=== PATIENT | female | born 1945 | race Caucasian/White ===

== ENCOUNTER → 2017-10-16 08:41 | Outpatient (CLI) | payer MEDICARE, BC, SELFPAY ==
--- NOTE | 2017-10-16 08:46 | MR_ITS ---
MR head/brain wo con HISTORY: Memory loss, ataxia, confusion, altered mental status, altered level of consciousness ITS.REASON: ATAXIA ORDERING PHYSICIAN: Raffaele Mcmahon MD PATIENT AGE: 72 years COMPARISON: None TECHNIQUE: Standard multiplanar multiecho sequences are performed without contrast. FINDINGS: No midline shift, mass effect, intracranial hemorrhage, or hydrocephalus. There is mild atrophy with periventricular ischemic gliotic changes. No acute infarction. No abnormal restricted diffusion. The cerebellopontine angles, cerebellum, and brainstem are unremarkable. The patella anteriorly, optic chiasm, corpus callosum have an unremarkable appearance. The hippocampal gyri are unremarkable in the temporal arteries are symmetric. No mastoid effusion or sinus air-fluid level. IMPRESSION: 1. No acute intracranial findings. 2. Atrophy with chronic ischemic gliotic changes
== END ==
PROVIDERS: Family Provider Internal Medicine Adolescent Medicine; PCP Internal Medicine Adolescent Medicine; Visit Provider Internal Medicine Adolescent Medicine
DX: R27.0 Ataxia, unspecified (principal)
CPT/HCPCS: 70551

== ENCOUNTER 2017-12-13 18:32 | Inpatient (IN) | payer MEDICARE, BC, SELFPAY ==
[2017-12-13 18:38] VITALS: BP 169/75; PULSE 124; RESP 28; TEMP 37.6; O2SAT 83; BMI 26.4
--- NOTE | 2017-12-13 18:47 | XR_ITS ---
XR chest portable COMPARISON: Portable upright chest 03/14/2017 HISTORY: Shortness of breath TECHNIQUE: Portable upright chest FINDINGS: Mild emphysematous changes seen with hyperexpansion lung onofre. See no infiltrate. The cardiac silhouette and vascularity are normal and is no pleural fluid. IMPRESSION: Mild COPD, no acute chest pathology noted
[2017-12-13 19:14] LABS: Basophils % 0.3 % (0.1-2.0); Eosinophils # 0.1 K/mm3 (0.0-0.4); Hematocrit 43.2 % (37.0-47.0); Hemoglobin 13.7 g/dL (12.2-16.2); Lymphocytes # 0.6 K/mm3 (0.7-4.5); Lymphocytes % 7.3 K/mm3 (10-50); Mean Corpuscular HGB Conc 31.7 g/dL (31.8-35.4); Mean Corpuscular Volume 94.7 fl (81-99); Mean Platelet Volume 7.1 fl (7.4-10.4); Monocytes # 0.5 K/mm3 (0.1-1.0); Monocytes % 7.1 % (1.7-9.3); Neutrophils # 6.4 K/mm3 (1.8-7.8); Neutrophils % 84.2 % (37.0-80.0); Platelet Count 203 K/mm3 (142-424); Red Blood Count 4.56 M/mm3 (4.20-5.40); Red Cell Distribution Width 12.6 % (11.5-17.5); White Blood Count 7.6 K/mm3 (4.8-10.8)
[2017-12-13 19:30] LABS: Lactic Acid 1.4 mmol/L (0.4-2.0)
[2017-12-13 19:46] LABS: Alanine Aminotransferase 30 U/L (12-78); Albumin Level 3.7 gm/dL (3.4-5.0); Albumin/Globulin Ratio 0.9 (1.1-1.8); Alkaline Phosphatase 111 U/L (46-116); Anion Gap 11.7 mEq/L (5-15); Aspartate Amino Transferase 23 U/L (15-37); Bilirubin,Total 0.4 mg/dL (0.2-1.0); Blood Urea Nitrogen 9 mg/dL (7-18); CKMB Relative Index 2.5 U/L (0-4.0); Carbon Dioxide 35 mmol/L (21.0-32.0); Chloride 98 mmol/L (98-107); Creatine Kinase 79 U/L (26-192); Creatinine Clearance Estimated 50 mL/min (0-300); Creatinine,Serum 0.91 mg/dL (0.55-1.02); Estimated Glomerular Filt Rate 61 ml/min (>60); GFR (African American) 73 ML/MIN (>60); Globulin 4.1 gm/dl (1.3-3.2); Glucose 134 mg/dL (74-106); Potassium 3.7 mmoL/L (3.5-5.1); Sodium 141 mmol/L (136-145); Total Protein,Serum 7.8 gm/dL (6.4-8.2); Troponin I < 0.02 ng/ml (0.00-0.06)
--- NOTE | 2017-12-13 20:06 | HMH.EDGENADL ---
ED Disposition Clinical Impression: COPD exacerbation Upper respiratory infection Qualifiers: URI type: unspecified URI Qualified Code(s): J06.9 - Acute upper respiratory infection, unspecified Disposition: Still a Patient Condition on Discharge: Good Referrals: Raffaele Mcmahon MD [Primary Care Provider] - - Critical Care Critical Care Time: No Attestation: On 12/13/17, the high probability of a clinically significant, sudden or life threatening deterioration of the following system(s) required my full and direct attention, intervention and personal management. The time I documented below is in addition to time spent performing reported procedures but includes the following listed in this critical care notation. Medical Decision Making - Hua Inquiry Pt receiving controlled substance: No Vital Signs: 12/13/17 18:38 Temperature 99.7 F H Temperature Source Oral Pulse Rate [Right Brachial] 124 H Respiratory Rate 28 H Blood Pressure [Right Arm] 169/75 Blood Pressure Mean [Right Arm] 106 Blood Pressure Source [Right Arm] Automatic Cuff Blood Pressure Position [Right Arm] Supine 02 Sat by Pulse Oximetry 83 L Oxygen Delivery Method Room Air - Lab Data Lab Results 12/13/17 18:55: WBC 7.6, RBC 4.56, Hgb 13.7, Hct 43.2, MCV 94.7, MCH 30.0, MCHC 31.7 L, RDW 12.6, Plt Count 203, MPV 7.1 L, Neut % (Auto) 84.2 H, Lymph % (Auto) 7.3 L, [place] % (Auto) 7.1, Eos % (Auto) 1.0, Baso % (Auto) 0.3, Neut # (Auto) 6.4, Lymph # (Auto) 0.6 L, [place] # (Auto) 0.5, Eos # (Auto) 0.1, Baso # (Auto) 0.0 12/13/17 18:55: Sodium 141, Potassium 3.7, Chloride 98, Carbon Dioxide 35 H, Anion Gap 11.7, BUN 9, Creatinine 0.91, Estimated Creat Clear 50, Estimated GFR 61, Est GFR ( Amer) 73, Glucose 134 H, Calcium 9.0, Total Bilirubin 0.4, AST 23, ALT 30, Alkaline Phosphatase 111, Total Creatine Kinase 79, CK-MB (CK-2) 2.0, CK-MB (CK-2) Rel Index 2.5, Troponin I < 0.02, Total Protein 7.8, Albumin 3.7, Globulin 4.1 H, Albumin/Globulin Ratio 0.9 L 12/13/17 18:55: Lactic Acid 1.4 Result diagrams: 12/13/17 18:55 12/13/17 18:55 Orders (Tests/Meds): ORDERS Category Date Time Status Chest XR -- portable [XR chest portable] Stat Exams 12/13/17 18:47 Taken Urinalysis-Acute [Urinalysis and Microscopic] Stat Lab 12/13/17 18:48 Ordered Blood Culture Stat Micro 12/13/17 18:55 Received ECG Request by /Nicole Stat Y 12/13/17 18:47 Ordered - ECG Data Tracing #1 EKG interpreted by Girish Jimenez MD: Rhythm: sinus tachycardia Rate: 112 [place]: Right Ectopy: none Conduction: normal ST Segment Changes: none T Wave Changes: none Q Waves: none No evidence of acute ischemia or injury Medical Decision Narrative: Initial pulse ox of 83% was on room air in the emergency room. She is not normally on room air at home. The patient's son feels strongly that she needs to be admitted. He says she lives alone. Very weak and unable to walk around because of dyspnea on exertion. 8:30 PM: I have discussed the case with Dr. Huggins for Dr. Mcmahon who agrees to admit the patient to the hospital. We discussed the patient's clinical information, including history, exam, laboratory and radiology results and ED course. Per hospital procedure, I will write temporary bridge inpatient orders on the patient. Specific orders requested by the admitting physician: Azithromycin, steroids, nebulizers General Adult HPI - General Chief complaint: Shortness of Breath/Dyspnea Stated complaint: trouble breathing history of COPD Time Seen by Provider: 12/13/17 20:15 Mode of Arrival: Family Vehicle Limitations: No Limitations Description of Symptoms (Recalled from ER Triage Doc. by RN): C/O SOB X 2 DAYS HX EMPHYSEMA - History of Present Illness HPI narrative: The patient complains of shortness of breath and a cold with a cough, nonproductive, for 2-3 days. She is extremely weak and very dyspneic on exertion. Her son turned her oxyg
[2017-12-13 20:35] VITALS: BP 160/87; PULSE 108; RESP 20; TEMP 37.1; O2SAT 96
[2017-12-13 20:53] VITALS: PULSE 100; PULSE 112; O2SAT 97
[2017-12-13 21:57] VITALS: BP 172/79; PULSE 117; RESP 22; TEMP 37.2; O2SAT 97
[2017-12-13 21:58] VITALS: BMI 25.1
[2017-12-13 22:00] VITALS: O2SAT 97
[2017-12-14] VITALS (7 sets, daily range): BP systolic 133–150; BP diastolic 59–75; PULSE 83–111; RESP 16–22; TEMP 36.4–36.9; O2SAT 92–97
--- NOTE | 2017-12-14 04:44 | PC.NURSE ---
NO COMPLAINTS SINCE ADMISSION, HAS SLEPT WELL. BS ACTIVE IN ALL 4 QAUDS. TOLERATING 2L NC WELL. WHEEZING AND FAINT CRACKLES NOTED DURING LUNG AUSCULTATION. VSS. NO ACUTE DISTRESS NOTED. WILL CONTINUE TO MONITOR.
--- NOTE | 2017-12-14 07:12 | PC.NURSE ---
REPORT GIVEN A BOAT RN
--- NOTE | 2017-12-14 07:27 | HMH.HP ---
*Admission Date: 12/13/17 *Chief complaint: Shortness of breath *History of present illness: 72-year-old female with emphysema presented to the emergency department with a 3 day history of increasing dyspnea at rest and even worse with exertion. She is oxygen dependent at home and due to increasing dyspnea at her son had increase her oxygen rate to 3 L/min. When she arrived at the emergency department show O2 sats were decreased but as stay in the emergency department lengthened patient was able to be weaned back to 2 L. She reports URI symptoms of cough and nasal congestion. Cough was productive of a very small amount of green sputum. She denies fevers or chills H History Medical History: Reports:: Chronic Obstructive Pulmonary Disease (COPD), Hyperlipidemia, Hypertension Denies:: Cancer, Diabetes Mellitus Type 1, Diabetes Mellitus Type 2, Internal Pacemaker, MRSA Other Medical History: Reports: Other (SOA,LUNG DISEASE) Other Surgeries: Yes: Colonoscopy, Tubal Ligation, Other (GALLBLADDER,BLADDER TUCK x2). No: Pacemaker Amputation: No Fractures: No - *Social History Educational Level: Completed High School Smoking Status: Former smoker Alcohol Intake: never Occupational Status: retired Housing: house - Psychiatric History Expresses thoughts of harming self/others: None Suicide Plan Description: No Plan *Family Hx:: Cancer, Diabetes, Hypertension, Kidney Disease, Stroke Review of Systems - Review of Systems Review of systems:: pertinent systems reviewed and negative unless documented below - *Neurologic Reports weakness Meds Home Medications Medication Instructions Recorded Confirmed Type atorvastatin 40 mg tablet 40 mg PO DAILY tab 12/03/17 12/13/17 History betaine 1 gram/1.7 mL oral powder 3 g PO DAILY 12/03/17 12/13/17 History duloxetine 30 mg capsule,delayed 30 mg PO DAILY cap 12/03/17 12/13/17 History release fesoterodine ER 8 mg 8 mg PO DAILY tab 12/03/17 12/13/17 History tablet,extended release 24 hr formoterol fumarate 12 mcg capsule 0.012 mcg INHALATION BID puff 12/03/17 12/13/17 History with inhalation device lorazepam 0.5 mg tablet 0.5 mg PO TID tab 12/03/17 12/13/17 History mirtazapine 15 mg tablet 15 mg PO QHS 12/03/17 12/13/17 History ieshzoczttmu-Ci-swcd-minerals 18 1 tab PO DAILY tab 12/03/17 12/13/17 History mg-0.4 mg tablet omeprazole 40 mg capsule,delayed 40 mg PO DAILY cap 12/03/17 12/13/17 History release potassium chloride ER 20 mEq 20 meq PO DAILY tab 12/03/17 12/13/17 History tablet,extended release sildenafil 50 mg tablet 40 mg PO TID tab 12/03/17 12/13/17 History theophylline ER 300 mg 300 mg PO BID cap 12/03/17 12/13/17 History capsule,extended release 24 hr Bisoprolol Fumarate [Zebeta 5mg 5 mg PO DAILY 12/13/17 12/13/17 History tablet] Buspirone HCl [Buspar 10mg tablet] 10 mg PO BID 12/13/17 12/13/17 History risperiDONE [Risperdal 1mg Tablet] 1 mg PO DAILY 12/13/17 12/13/17 History Allergies Allergy/AdvReac Type Severity Reaction Status Date / Time amoxicillin [From AUGMENTIN] Allergy Unknown Verified 12/13/17 18:46 clavulanic acid Allergy Unknown Verified 12/13/17 18:46 [From AUGMENTIN] Exam Vital signs and Labs for Last 24 Hours: Temp Pulse Resp BP Pulse Ox 97.5 F L 85 22 133/71 95 12/14/17 04:34 12/14/17 07:11 12/14/17 04:34 12/14/17 04:34 12/14/17 07:11 Laboratory Results - last 24 hr 12/13/17 18:55: WBC 7.6, RBC 4.56, Hgb 13.7, Hct 43.2, MCV 94.7, MCH 30.0, MCHC 31.7 L, RDW 12.6, Plt Count 203, MPV 7.1 L, Neut % (Auto) 84.2 H, Lymph % (Auto) 7.3 L, [place] % (Auto) 7.1, Eos % (Auto) 1.0, Baso % (Auto) 0.3, Neut # (Auto) 6.4, Lymph # (Auto) 0.6 L, [place] # (Auto) 0.5, Eos # (Auto) 0.1, Baso # (Auto) 0.0 12/13/17 18:55: Sodium 141, Potassium 3.7, Chloride 98, Carbon Dioxide 35 H, Anion Gap 11.7, BUN 9, Creatinine 0.91, Estimated Creat Clear 50, Estimated GFR 61, Est GFR ( Amer) 73, Glucose 134 H, Calcium
--- NOTE | 2017-12-14 07:30 | P.HP_ITS ---
*Admission Date: 12/13/17 *Chief complaint: Shortness of breath *History of present illness: 72-year-old female with emphysema presented to the emergency department with a 3 day history of increasing dyspnea at rest and even worse with exertion. She is oxygen dependent at home and due to increasing dyspnea at her son had increase her oxygen rate to 3 L/min. When she arrived at the emergency department show O2 sats were decreased but as stay in the emergency department lengthened patient was able to be weaned back to 2 L. She reports URI symptoms of cough and nasal congestion. Cough was productive of a very small amount of green sputum. She denies fevers or chills H History Medical History: Reports:: Chronic Obstructive Pulmonary Disease (COPD), Hyperlipidemia, Hypertension Denies:: Cancer, Diabetes Mellitus Type 1, Diabetes Mellitus Type 2, Internal Pacemaker, MRSA Other Medical History: Reports: Other (SOA,LUNG DISEASE) Other Surgeries: Yes: Colonoscopy, Tubal Ligation, Other (GALLBLADDER,BLADDER TUCK x2). No: Pacemaker Amputation: No Fractures: No - *Social History Educational Level: Completed High School Smoking Status: Former smoker Alcohol Intake: never Occupational Status: retired Housing: house - Psychiatric History Expresses thoughts of harming self/others: None Suicide Plan Description: No Plan *Family Hx:: Cancer, Diabetes, Hypertension, Kidney Disease, Stroke Review of Systems - Review of Systems Review of systems:: pertinent systems reviewed and negative unless documented below - *Neurologic Reports weakness Meds Home Medications Medication Instructions Recorded Confirmed Type atorvastatin 40 mg tablet 40 mg PO DAILY tab 12/03/17 12/13/17 History betaine 1 gram/1.7 mL oral powder 3 g PO DAILY 12/03/17 12/13/17 History duloxetine 30 mg capsule,delayed 30 mg PO DAILY cap 12/03/17 12/13/17 History release fesoterodine ER 8 mg 8 mg PO DAILY tab 12/03/17 12/13/17 History tablet,extended release 24 hr formoterol fumarate 12 mcg capsule 0.012 mcg INHALATION BID puff 12/03/1712/13 History with inhalation device lorazepam 0.5 mg tablet 0.5 mg PO TID tab 12/03/17 12/13/17 History mirtazapine 15 mg tablet 15 mg PO QHS 12/03/17 12/13/17 History jomlhecfufgw-Yb-ogkl-minerals 18 1 tab PO DAILY tab 12/03/17 12/13/17 History mg-0.4 mg tablet omeprazole 40 mg capsule,delayed 40 mg PO DAILY cap 12/03/17 12/13/17 History release potassium chloride ER 20 mEq 20 meq PO DAILY tab 12/03/17 12/13/17 History tablet,extended release sildenafil 50 mg tablet 40 mg PO TID tab 12/03/17 12/13/17 History theophylline ER 300 mg 300 mg PO BID cap 12/03/17 12/13/17 History capsule,extended release 24 hr Bisoprolol Fumarate [Zebeta 5mg 5 mg PO DAILY 12/13/17 12/13/17 History tablet] Buspirone HCl [Buspar 10mg tablet] 10 mg PO BID 12/13/17 12/13/17 History risperiDONE [Risperdal 1mg Tablet] 1 mg PO DAILY 12/13/17 12/13/17 History Allergies Allergy/AdvReac Type Severity Reaction Status Date / Time amoxicillin [From AUGMENTIN] Allergy Unknown Verified 12/13/17 18:46 clavulanic acid Allergy Unknown Verified 12/13/17 18:46 [From AUGMENTIN] Exam Vital signs and Labs for Last 24 Hours: Temp Pulse Resp BP Pulse Ox 97.5 F L 85 22 133/71 95 12/14/17 04:34 12/14/17 07:11 12/14/17 04:34
--- NOTE | 2017-12-14 07:34 | PC.NURSE ---
REPORT GIVEN TO Mya HUANG W/C
--- NOTE | 2017-12-14 13:41 | P.CONPHA_ITS ---
[facility] Pharmacy VTE Monitoring - Patient Demographics Admission date: 12/14/17 Report Date: 12/14/17 Time: 13:40 Allergies/Adverse Reactions: Patient Allergies amoxicillin [From AUGMENTIN] Allergy (Unknown, Verified 12/13/17 18:46) clavulanic acid [From AUGMENTIN] Allergy (Unknown, Verified 12/13/17 18:46) Height: 1.57 m Weight: 62.341 kg Patient Problems: Current Active Problems COPD exacerbation (Acute) Upper respiratory infection (Acute) - VTE Risk Labs: VTE Related Lab Results Hgb 13.7 g/dL (12.2-16.2) 12/13/17 18:55 Hct 43.2 % (37.0-47.0) 12/13/17 18:55 Plt Count 203 K/mm3 (142-424) 12/13/17 18:55 BUN 9 mg/dL (7-18) 12/13/17 18:55 Creatinine 0.91 mg/dL (0.55-1.02) 12/13/17 18:55 Estimated Creat Clear 50 mL/min (0-300) 12/13/17 18:55 Was VTE Risk Assessment Performed: Yes VTE Score: 3 VTE Risk Level: Low Risk - Prophylaxis Types of VTE Prophylaxis: IPCS Thigh High - VTE Diagnosis Confirmed Comment: SUDHEER GARVEY ORDERED
[2017-12-15] VITALS (8 sets, daily range): BP systolic 140–201; BP diastolic 73–93; PULSE 114–140; RESP 22–24; TEMP 36.5–36.7; O2SAT 90–92
--- NOTE | 2017-12-15 03:37 | PC.NURSE ---
Pt has rested well this shift with no complaints. Pt educated on getting a sputum specimen and states she isnt able to cough anything up at this time. Tolerating 2L NC. Wheezing noted during lung auscultation. BS active in all 4 qauds. VSS. No acute distress noted. Will continue to monitor.
--- NOTE | 2017-12-15 07:20 | PC.NURSE ---
REPORT GIVEN TO Mya HUANG W/C
--- NOTE | 2017-12-15 07:52 | PC.NURSE ---
report given to a bout rn
--- NOTE | 2017-12-15 08:44 | HMH.ACPN2 ---
Internal Medicine - PN: Subj *Date: 12/15/17 *Time: 08:44 Interval history: Patient reports feeling very anxious after receiving breathing treatments. Her anxiety escalates to the point where she almost gets angry. She asks if breathing treatments can be stopped. She does feel improvement over the last 24 hours. She feels unsteady on her feet and dyspneic when ambulating Exam Vital signs and Labs for Last 24 Hours: Temp Pulse Resp BP Pulse Ox 97.9 F 114 H 22 149/86 91 L 12/15/17 04:00 12/15/17 04:00 12/15/17 04:00 12/15/17 04:00 12/15/17 04:00 I & O for Last 24 hours: Intake & Output 12/12/17 12/13/17 12/14/17 12/15/17 11:59 11:59 11:59 11:59 Intake Total 270 / 270 240 / 240 Output Total 700 / 700 1140 / 1140 Balance -430 / -430 -900 / -900 Weight 137 lb 7 oz 137 lb 7 oz Narrative: She is in no distress and appears comfortable while sitting in bed. Lung exam continues to have very distant breath sounds with poor aeration but no wheezing. Heart has a regular rate and rhythm. Extremities are without edema. Assessment and Plan (1) COPD exacerbation Current visit: Yes Status: Acute Category: Medical Code(s): J44.1 - Chronic obstructive pulmonary disease with (acute) exacerbation - Assessment and plan all Dx Assessment and Plan for all problems:: Decrease steroid frequency to twice daily and discontinue duo nebs due to agitation. Continue home inhalers.
--- NOTE | 2017-12-15 20:21 | PC.NURSE ---
NURSE WAS NOTIFIED OF PTS ELEVATED PULSE. NURSE OBTAINED PTS BP MANUAL
[2017-12-16] VITALS (8 sets, daily range): BP systolic 146–184; BP diastolic 64–96; PULSE 102–140; RESP 22–24; TEMP 36–37.1; O2SAT 90–95
--- NOTE | 2017-12-16 04:01 | PC.NURSE ---
NURSE WAS NOTIFIED OF PTS VITAL SIGNS TAKEN AT THIS TIME
--- NOTE | 2017-12-16 04:44 | PC.NURSE ---
Pt HR and B/P have been elevated this shift (MD aware see provider notification). Pt becomes very anxious at times, most often when she ambulates to BR, she states this happens to her at home a lot, and that she'll usually take an extra nerve pill. Lung sounds diminished. BS active in all 4 qauds. No acute distress noted. Will continue to monitor.
--- NOTE | 2017-12-16 07:21 | PC.NURSE ---
REPORT GIVEN TO Duglas REYNA W/C
--- NOTE | 2017-12-16 07:29 | PC.NURSE ---
report to felecia hubbard rn
--- NOTE | 2017-12-16 07:50 | HMH.ACPN ---
Internal Medicine - PN: Subj *Date: 12/16/17 *Time: 08:54 Interval history: No acute events overnight but she continues to feel very dyspneic. Otherwise she is without concerns. Hasn't had a BM since admission, is drinking prune juice this morning. Exam Vital signs and Labs for Last 24 Hours: Temp Pulse Resp BP Pulse Ox 98.2 F 140 H 22 165/64 91 L 12/16/17 07:49 12/16/17 07:49 12/16/17 07:49 12/16/17 07:49 12/16/17 07:49 I & O for Last 24 hours: Intake & Output 12/13/17 12/14/17 12/15/17 12/16/17 11:59 11:59 11:59 11:59 Intake Total 270 / 270 240 / 240 850 / 850 Output Total 700 / 700 1140 / 1140 1650 / 1650 Balance -430 / -430 -900 / -900 -800 / -800 Weight 137 lb 7 oz 137 lb 7 oz Narrative: Pleasant female in NAD. Sitting upright in bed, oxygen by NC. Mild conversational dyspnea. Heart with RRR but tachycardic. Lungs with poor air movement, bibasilar rales, congested cough. Abdomen soft, NT/ND, BS present. No edema. Assessment and Plan (1) COPD exacerbation Current visit: Yes Status: Acute Category: Medical Code(s): J44.1 - Chronic obstructive pulmonary disease with (acute) exacerbation - Assessment and plan all Dx Assessment and Plan for all problems:: Add mucomyst neb TID to help with sputum expectoration, low dose xoponex. Attempt to obtain sputum culture. High risk for MRSA given her chronic lung disease, add vancomycin IV and Aztreonam.
[2017-12-16 08:19] LABS: Basophils % 0.1 % (0.1-2.0); Eosinophils % 0.4 % (0.1-12.0); Hematocrit 46.2 % (37.0-47.0); Hemoglobin 14.7 g/dL (12.2-16.2); Lymphocytes # 0.7 K/mm3 (0.7-4.5); Lymphocytes % 6.1 K/mm3 (10-50); Mean Corpuscular HGB Conc 31.8 g/dL (31.8-35.4); Mean Corpuscular Hemoglobin 30.3 pg (27.0-31.2); Mean Corpuscular Volume 95.3 fl (81-99); Mean Platelet Volume 7.2 fl (7.4-10.4); Monocytes # 0.6 K/mm3 (0.1-1.0); Monocytes % 5.3 % (1.7-9.3); Neutrophils # 10.7 K/mm3 (1.8-7.8); Neutrophils % 88.2 % (37.0-80.0); Platelet Count 353 K/mm3 (142-424); Red Blood Count 4.85 M/mm3 (4.20-5.40); Red Cell Distribution Width 12.7 % (11.5-17.5); White Blood Count 12.1 K/mm3 (4.8-10.8)
[2017-12-16 08:21] LABS: MANUAL DIFFERENTIAL MANUAL DIFFERENTIAL (MANUAL DIFF)
[2017-12-16 08:42] LABS: Anion Gap 9.6 mEq/L (5-15); Blood Urea Nitrogen 18 mg/dL (7-18); Carbon Dioxide 35 mmol/L (21.0-32.0); Chloride 102 mmol/L (98-107); Creatinine Clearance Estimated 49 mL/min (0-300); Creatinine,Serum 0.92 mg/dL (0.55-1.02); Estimated Glomerular Filt Rate 60 ml/min (>60); GFR (African American) 72 ML/MIN (>60); Glucose 190 mg/dL (74-106); Potassium 3.6 mmoL/L (3.5-5.1); Sodium 143 mmol/L (136-145)
[2017-12-16 08:44] LABS: Lymphocytes % 10 % (10-50); Monocytes % 1 % (2-9); Neutrophils % 87 % (42-76); Platelet Estimate Normal; RBC Morphology Normal; Total Cells Counted 100
--- NOTE | 2017-12-16 09:20 | P.CONPHA_ITS ---
- Pharmacy Consult Date: 12/16/17 Time: 09:19 Referring provider: DR. GRIJALVA Reason for Consult:: VANCOMYCIN DOSING Allergies and ADEs:: Allergies Allergy/AdvReac Type Severity Reaction Status Date / Time amoxicillin [From AUGMENTIN] Allergy Unknown Verified 12/13/17 18:46 clavulanic acid Allergy Unknown Verified 12/13/17 18:46 [From AUGMENTIN] Home Medications:: Home Medications Medication Instructions Recorded Confirmed Type atorvastatin 40 mg tablet 40 mg PO HS tab 12/03/17 12/14/17 History betaine 1 gram/1.7 mL oral powder 3 g PO DAILY 12/03/17 12/13/17 History lorazepam 0.5 mg tablet 0.5 mg PO TID tab 12/03/17 12/13/17 History mirtazapine 15 mg tablet 15 mg PO QHS 12/03/17 12/13/17 History tbdlsbtpzdkg-Us-tndn-minerals 18 1 tab PO DAILY tab 12/03/17 12/13/17 History mg-0.4 mg tablet omeprazole 40 mg capsule,delayed 40 mg PO DAILY cap 12/03/17 12/13/17 History release sildenafil 50 mg tablet 40 mg PO TID tab 12/03/17 12/13/17 History theophylline ER 300 mg 300 mg PO BID cap 12/03/17 12/13/17 History capsule,extended release 24 hr Bisoprolol Fumarate [Zebeta 5mg 5 mg PO DAILY 12/13/17 12/13/17 History tablet] risperiDONE [Risperdal 1mg Tablet] 1 mg PO DAILY 12/13/17 12/13/17 History Alendronate Sodium 35 mg PO WEEKLY 12/14/17 12/14/17 History Buspirone HCl [Buspar 5mg tablet] 5 mg PO BID 12/14/17 12/14/17 History Duloxetine HCl [Cymbalta] 60 mg PO DAILY 12/14/17 12/14/17 History Fesoterodine Fumarate [Toviaz] 8 mg PO DAILY 12/14/17 12/14/17 History Potassium Chloride [K-Tab ER 10 20 meq PO BID 12/14/17 12/14/17 History mEq] Height: 1.57 m Weight: 62.341 kg Laboratory Results:: Laboratory Results - last 24 hr 12/16/17 08:05: WBC 12.1 H D, RBC 4.85, Hgb 14.7, Hct 46.2, MCV 95.3, MCH 30.3, MCHC 31.8, RDW 12.7, Plt Count 353 D, MPV 7.2 L, Neut % (Auto) 88.2 H, Lymph % (Auto) 6.1 L, [place] % (Auto) 5.3, Eos % (Auto) 0.4, Baso % (Auto) 0.1, Neut # ( Auto) 10.7 H, Lymph # (Auto) 0.7, [place] # (Auto) 0.6, Eos # (Auto) 0.0, Baso # ( Auto) 0.0, Total Counted 100, Neutrophils % (Manual) 87 H, Band Neutrophils % 2.0, Lymphocytes % (Manual) 10, Monocytes % (Manual) 1 L, Platelet Estimate Normal, RBC Morphology Normal 12/16/17 08:05: Sodium 143, Potassium 3.6, Chloride 102, Carbon Dioxide 35 H, Anion Gap 9.6, BUN 18 D, Creatinine 0.92, Estimated Creat Clear 49, Estimated GFR 60, Est GFR ( Amer) 72, Glucose 190 H Medical History: Reports:: Chronic Obstructive Pulmonary Disease (COPD), Hyperlipidemia, Hypertension Denies:: Cancer, Diabetes Mellitus Type 1, Diabetes Mellitus Type 2, Internal Pacemaker, MRSA Assessment and Plan (1) COPD exacerbation Current visit: Yes Status: Acute Category: Medical Code(s): J44.1 - Chronic obstructive pulmonary disease with (acute) exacerbation - Assessment and plan all Dx Assessment and Plan for all problems:: BASED ON PATIENT FACTORS, RECOMMEND VANCOMYCIN 1000 MG IV Q24H. WILL OBTAIN VANCOMYCIN TROUGH LEVEL PRIOR TO 4TH DOSE. PHARMACY WILL FOLLOW DAILY AND ADJUST APPROPRIATE.
--- NOTE | 2017-12-16 19:03 | PC.NURSE ---
PATIENT REFUSED BREATHING TREATMENTS THIS AM, MD NOTIFIED, MEDICATION CHANGED, MD CAME AND TALKED WITH PATIENT , PATIENT NOW GETTING BREATHING TREATMENTS. PATIENT HAS SLEPT A LOT TODAY AND WAS CONFUSED WHEN SHE WOKE UP. DENIES ANY NEEDS, NO DISTRESS NOTED, WILL CONTINUE TO MONITOR.
--- NOTE | 2017-12-16 19:13 | PC.NURSE ---
report given to loretta kathleen
--- NOTE | 2017-12-16 19:36 | PC.NURSE ---
REPORT GIVEN CHRISTOPH HATFIELD
[2017-12-17] VITALS (9 sets, daily range): BP systolic 118–158; BP diastolic 58–83; PULSE 90–155; RESP 18–20; TEMP 36.4–37.5; O2SAT 92–99
--- NOTE | 2017-12-17 04:49 | PC.NURSE ---
PT HAS SLEPT. HAD ONE EPISODE OF ANXIETY BUT EVENTUALLY CALMED. SOB WITH MNIMAL EXERTION. PT ON 2.5L OF OXYGEN. B/P AND HR HAVE BEEN ELEVATED AT TIMES. THIS AM B/P AND HR DOWN. OCCASSIONAL NONPRODUCTIVE COUGH NOTED.
[2017-12-17 07:13] LABS: Basophils % 0.1 % (0.1-2.0); Eosinophils % 0.1 % (0.1-12.0); Hematocrit 45.6 % (37.0-47.0); Hemoglobin 14.4 g/dL (12.2-16.2); Lymphocytes # 0.7 K/mm3 (0.7-4.5); Lymphocytes % 9.2 K/mm3 (10-50); Mean Corpuscular HGB Conc 31.5 g/dL (31.8-35.4); Mean Corpuscular Hemoglobin 30.2 pg (27.0-31.2); Mean Corpuscular Volume 95.8 fl (81-99); Mean Platelet Volume 7.2 fl (7.4-10.4); Monocytes # 0.4 K/mm3 (0.1-1.0); Monocytes % 4.8 % (1.7-9.3); Neutrophils # 6.8 K/mm3 (1.8-7.8); Neutrophils % 85.8 % (37.0-80.0); Platelet Count 343 K/mm3 (142-424); Red Blood Count 4.76 M/mm3 (4.20-5.40); Red Cell Distribution Width 12.9 % (11.5-17.5); White Blood Count 7.9 K/mm3 (4.8-10.8)
[2017-12-17 07:25] LABS: Anion Gap 8.6 mEq/L (5-15); Blood Urea Nitrogen 18 mg/dL (7-18); Carbon Dioxide 36 mmol/L (21.0-32.0); Chloride 103 mmol/L (98-107); Creatinine Clearance Estimated 49 mL/min (0-300); Creatinine,Serum 0.91 mg/dL (0.55-1.02); Estimated Glomerular Filt Rate 61 ml/min (>60); GFR (African American) 73 ML/MIN (>60); Glucose 160 mg/dL (74-106); Potassium 4.6 mmoL/L (3.5-5.1); Sodium 143 mmol/L (136-145)
[2017-12-17 07:37] LABS: MANUAL DIFFERENTIAL MANUAL DIFFERENTIAL (MANUAL DIFF)
--- NOTE | 2017-12-17 09:12 | HMH.ACPN2 ---
Internal Medicine - PN: Subj *Date: 12/17/17 *Time: 08:00 Interval history: Patient continues to have increased anxiety with change to mucomyst treatments. States she feels drunk after treatments. Alert and oriented x3. Rate and rhythm regular. Loose rhonchi throughout all lung onofre. Abdomen soft and nontender. Exam Vital signs and Labs for Last 24 Hours: Temp Pulse Resp BP Pulse Ox 99.5 F 155 H 18 118/58 92 L 12/17/17 07:36 12/17/17 07:36 12/17/17 07:36 12/17/17 07:36 12/17/17 07:36 Laboratory Results - last 24 hr 12/17/17 06:30: WBC 7.9 D, RBC 4.76, Hgb 14.4, Hct 45.6, MCV 95.8, MCH 30.2, MCHC 31.5 L, RDW 12.9, Plt Count 343, MPV 7.2 L, Neut % (Auto) 85.8 H, Lymph % (Auto) 9.2 L, [place] % (Auto) 4.8, Eos % (Auto) 0.1, Baso % (Auto) 0.1, Neut # (Auto) 6.8, Lymph # (Auto) 0.7, [place] # (Auto) 0.4, Eos # (Auto) 0.0, Baso # (Auto) 0.0 12/17/17 06:30: Sodium 143, Potassium 4.6 D, Chloride 103, Carbon Dioxide 36 H, Anion Gap 8.6, BUN 18, Creatinine 0.91, Estimated Creat Clear 49, Estimated GFR 61, Est GFR ( Amer) 73, Glucose 160 H I & O for Last 24 hours: Intake & Output 12/14/17 12/15/17 12/16/17 12/17/17 11:59 11:59 11:59 11:59 Intake Total 270 / 270 240 / 240 1210 / 1210 1190 / 1190 Output Total 700 / 700 1140 / 1140 1650 / 1650 1450 / 1450 Balance -430 / -430 -900 / -900 -440 / -440 -260 / -260 Weight 137 lb 7 oz 137 lb 7 oz 137 lb 7 oz Microbiology Reports for the Last 24 Hours: Microbiology 12/16/17 04:35 Sputum - Expectorated Sputum Gram Stain - Final 12/16/17 04:35 Sputum - Expectorated Sputum Sputum Culture - Preliminary Assessment and Plan (1) COPD exacerbation Current visit: Yes Status: Acute Category: Medical Code(s): J44.1 - Chronic obstructive pulmonary disease with (acute) exacerbation - Assessment and plan all Dx Assessment and Plan for all problems:: Stop mucomyst treatments. Continue IV antibiotics. Encourage to get out of bed to the chair today. Consult Dr. Danielle
--- NOTE | 2017-12-17 09:15 | P.PN_ITS ---
Internal Medicine - PN: Subj *Date: 12/17/17 *Time: 08:00 Interval history: Patient continues to have increased anxiety with change to mucomyst treatments. States she feels drunk after treatments. Alert and oriented x3. Rate and rhythm regular. Loose rhonchi throughout all lung onofre. Abdomen soft and nontender. Exam Vital signs and Labs for Last 24 Hours: Temp Pulse Resp BP Pulse Ox 99.5 F 155 H 18 118/58 92 L 12/17/17 07:36 12/17/17 07:36 12/17/17 07:36 12/17/17 07:36 12/17/17 07:36 Laboratory Results - last 24 hr 12/17/17 06:30: WBC 7.9 D, RBC 4.76, Hgb 14.4, Hct 45.6, MCV 95.8, MCH 30.2, MCHC 31.5 L, RDW 12.9, Plt Count 343, MPV 7.2 L, Neut % (Auto) 85.8 H, Lymph % ( Auto) 9.2 L, [place] % (Auto) 4.8, Eos % (Auto) 0.1, Baso % (Auto) 0.1, Neut # ( Auto) 6.8, Lymph # (Auto) 0.7, [place] # (Auto) 0.4, Eos # (Auto) 0.0, Baso # (Auto ) 0.0 12/17/17 06:30: Sodium 143, Potassium 4.6 D, Chloride 103, Carbon Dioxide 36 H , Anion Gap 8.6, BUN 18, Creatinine 0.91, Estimated Creat Clear 49, Estimated GFR 61, Est GFR ( Amer) 73, Glucose 160 H I & O for Last 24 hours: Intake & Output 12/14/17 12/15/17 12/16/17 12/17/17 11:59 11:59 11:59 11:59 Intake Total 270 / 270 240 / 240 1210 / 1210 1190 / 1190 Output Total 700 / 700 1140 / 1140 1650 / 1650 1450 / 1450 Balance -430 / -430 -900 / -900 -440 / -440 -260 / -260 Weight 137 lb 7 oz 137 lb 7 oz 137 lb 7 oz Microbiology Reports for the Last 24 Hours: Microbiology 12/16/17 04:35 Sputum - Expectorated Sputum Gram Stain - Final 12/16/17 04:35 Sputum - Expectorated Sputum Sputum Culture - Preliminary Assessment and Plan (1) COPD exacerbation Current visit: Yes Status: Acute Category: Medical Code(s): J44.1 - Chronic obstructive pulmonary disease with (acute) exacerbation - Assessment and plan all Dx Assessment and Plan for all problems:: Stop mucomyst treatments. Continue IV antibiotics. Encourage to get out of bed to the chair today. Consult Dr. Danielle
[2017-12-17 10:54] LABS: Lymphocytes % 4 % (10-50); Neutrophils % 95 % (42-76); Total Cells Counted 100
[2017-12-17 10:55] LABS: Platelet Estimate Normal
[2017-12-17 10:56] LABS: RBC Morphology Normal
--- NOTE | 2017-12-17 14:22 | CA_ITS ---
PROCEDURE: 2-D M-mode and color Doppler study INDICATIONS FOR THE TEST: Chest pain COPD Heart Murmur Tobacco Smoking Palpitations Fatigue Syncope Edema Hypertension Diabetes Mellitus Rheumatic Fever SOB TORRES Obesity Hyperlipidemia Family History HD Additional History PAT PATIENT INFORMATION HEIGHT: 62 WEIGHT:137 GENDER: Female B/P:118/58 2-D/M-MODE INTERPRETATION: 2-D MEASUREMENTS OBSERVED VALUES IN CMS Right Ventricular Dimension (RVDd) 2.7 Interventricular Septum (Thickness)(IVsd) 1.1 Left Ventricular Internal Dimensions(LVIDd) 3.4 Left Ventricular Posterior Wall (Thickness)(LVPWd) 0.8 Aortic Root 2.7 Aortic Cusp Separation 1.7 Left Atrial Dimensions (LAD) 2.9 2D 1. Left atrium is mildly enlarged, left ventricle is normal size, there is no concentric left ventricular hypertrophy, visually estimated ejection fraction of 50% with no obvious regional wall motion abnormality, endocardial surfaces are poorly visualized, this study is technically difficult to patient's factor and poor acoustic windows. 2. The right atrium and right ventricle are mildly enlarged with normal contractility. 3. The aortic valve is thickened and calcified. 4. The mitral valve has mitral annular calcification. 5. The tricuspid valve is grossly normal. 6. The pulmonic valve is poorly visualized 7. No significant pericardial effusion noted. DOPPLER INTERROGATION: Doppler interrogation of the aortic, mitral and tricuspid valvular presence of mild aortic, mild mitral and tricuspid regurgitation, tricuspid and jet velocity is insufficient for calculation of the right ventricular systolic pressure, diastolic parameters are inconclusive. CONCLUSION: 1. Technically difficult study because of the patient's factor and poor acoustic windows 2. Mildly enlarged left atrium, normal left ventricular size, visually estimated ejection fraction 50% with no obvious regional wall motion abnormality, endocardial surfaces are poorly visualized. 3. Mildly enlarged right ventricle with normal contractility 4. Mild aortic, mild mitral and tricuspid regurgitation 5. No significant pericardial effusion noted.
--- NOTE | 2017-12-17 14:22 | HMH.CNCARD ---
History of Present Illness Consult date: 12/17/17 Requesting physician: Guille Danielle Consult reason: shortness of breath Chief complaint: Tachycardia Additional Medical History:: 1. COPD A. History of tobacco use discontinued 22 years ago 2. Hypertension 3. Hyperlipidemia History of present illness: 72-year-old white female admitted on 12/13/2017 for increasing shortness of breath. Patient relates a 4 day history of gradual increasing shortness of breath prior to admission. She denies any chest pain, pressure or tightness. Shortness of breath continued despite aggressive pulmonary treatment. Dr. Danielle (Receiver Setter) was consulted today and noticed that the patient's heart rate was elevated at which time an EKG was performed revealing paroxysmal atrial tachycardia 162 bpm. Right axis deviation with pulmonary disease pattern noted. Question septal infarct. Cardiology consulted for further evaluation and recommendations. Patient denies any previous cardiac history. She denies diabetes and she quit smoking over 20 years ago. [facility] History Medical History: Reports:: Chronic Obstructive Pulmonary Disease (COPD), Hyperlipidemia, Hypertension Denies:: Cancer, Diabetes Mellitus Type 1, Diabetes Mellitus Type 2, Internal Pacemaker, MRSA Other Medical History: Reports: Other (SOA,LUNG DISEASE) Other Surgeries: Yes: Colonoscopy, Tubal Ligation, Other (GALLBLADDER,BLADDER TUCK x2). No: Pacemaker Amputation: No Fractures: No - *Social History Educational Level: Completed High School Smoking Status: Former smoker Alcohol Intake: never Occupational Status: retired Housing: house - Psychiatric History Expresses thoughts of harming self/others: None Suicide Plan Description: No Plan *Family Hx:: Cancer, Diabetes, Hypertension, Kidney Disease, Stroke Meds Home Medications Medication Instructions Recorded Confirmed Type atorvastatin 40 mg tablet 40 mg PO HS tab 12/03/17 12/14/17 History betaine 1 gram/1.7 mL oral powder 3 g PO DAILY 12/03/17 12/13/17 History lorazepam 0.5 mg tablet 0.5 mg PO TID tab 12/03/17 12/13/17 History mirtazapine 15 mg tablet 15 mg PO QHS 12/03/17 12/13/17 History sjeihhnouncr-Gr-ezxm-minerals 18 1 tab PO DAILY tab 12/03/17 12/13/17 History mg-0.4 mg tablet omeprazole 40 mg capsule,delayed 40 mg PO DAILY cap 12/03/17 12/13/17 History release sildenafil 50 mg tablet 40 mg PO TID tab 12/03/17 12/13/17 History theophylline ER 300 mg 300 mg PO BID cap 12/03/17 12/13/17 History capsule,extended release 24 hr Bisoprolol Fumarate [Zebeta 5mg 5 mg PO DAILY 12/13/17 12/13/17 History tablet] risperiDONE [Risperdal 1mg Tablet] 1 mg PO DAILY 12/13/17 12/13/17 History Alendronate Sodium 35 mg PO WEEKLY 12/14/17 12/14/17 History Buspirone HCl [Buspar 5mg tablet] 5 mg PO BID 12/14/17 12/14/17 History Duloxetine HCl [Cymbalta] 60 mg PO DAILY 12/14/17 12/14/17 History Fesoterodine Fumarate [Toviaz] 8 mg PO DAILY 12/14/17 12/14/17 History Potassium Chloride [K-Tab ER 10 20 meq PO BID 12/14/17 12/14/17 History mEq] Allergies Allergy/AdvReac Type Severity Reaction Status Date / Time amoxicillin [From AUGMENTIN] Allergy Unknown Verified 12/13/17 18:46 clavulanic acid Allergy Unknown Verified 12/13/17 18:46 [From AUGMENTIN] Review of Systems - *Cardiovascular Reports shortness of breath, Denies chest pain - *Respiratory Reports shortness of breath - *Gastrointestinal Denies abdominal pain - *Neurologic Reports weakness Exam Vital signs and Labs for Last 24 Hours: Temp Pulse Resp BP Pulse Ox 99.5 F 155 H 18 118/58 92 L 12/17/17 07:36 12/17/17 07:36 12/17/17 07:36 12/17/17 07:36 12/17/17 07:36 Laboratory Results - last 24 hr 12/17/17 06:30: WBC 7.9 D, RBC 4.76, Hgb 14.4, Hct 45.6, MCV 95.8, MCH 30.2, MCHC 31.5 L, RDW 12.9, Plt Count 343, MPV 7.2 L, Neut % (Auto) 85.8 H, Lymph % (Auto) 9.2 L, [place] % (Auto) 4.8, Eos % (Auto) 0.1, Baso % (Auto)
--- NOTE | 2017-12-17 14:28 | P.CONS_ITS ---
History of Present Illness Consult date: 12/17/17 Requesting physician: Guille Danielle Consult reason: shortness of breath Chief complaint: Tachycardia Additional Medical History:: 1. COPD A. History of tobacco use discontinued 22 years ago 2. Hypertension 3. Hyperlipidemia History of present illness: 72-year-old white female admitted on 12/13/2017 for increasing shortness of breath. Patient relates a 4 day history of gradual increasing shortness of breath prior to admission. She denies any chest pain, pressure or tightness. Shortness of breath continued despite aggressive pulmonary treatment. Dr. Danielle (Strip Picker) was consulted today and noticed that the patient's heart rate was elevated at which time an EKG was performed revealing paroxysmal atrial tachycardia 162 bpm. Right axis deviation with pulmonary disease pattern noted. Question septal infarct. Cardiology consulted for further evaluation and recommendations. Patient denies any previous cardiac history. She denies diabetes and she quit smoking over 20 years ago. [facility] History Medical History: Reports:: Chronic Obstructive Pulmonary Disease (COPD), Hyperlipidemia, Hypertension Denies:: Cancer, Diabetes Mellitus Type 1, Diabetes Mellitus Type 2, Internal Pacemaker, MRSA Other Medical History: Reports: Other (SOA,LUNG DISEASE) Other Surgeries: Yes: Colonoscopy, Tubal Ligation, Other (GALLBLADDER,BLADDER TUCK x2). No: Pacemaker Amputation: No Fractures: No - *Social History Educational Level: Completed High School Smoking Status: Former smoker Alcohol Intake: never Occupational Status: retired Housing: house - Psychiatric History Expresses thoughts of harming self/others: None Suicide Plan Description: No Plan *Family Hx:: Cancer, Diabetes, Hypertension, Kidney Disease, Stroke Meds Home Medications Medication Instructions Recorded Confirmed Type atorvastatin 40 mg tablet 40 mg PO HS tab 12/03/17 12/14/17 History betaine 1 gram/1.7 mL oral powder 3 g PO DAILY 12/03/17 12/13/17 History lorazepam 0.5 mg tablet 0.5 mg PO TID tab 12/03/17 12/13/17 History mirtazapine 15 mg tablet 15 mg PO QHS 12/03/17 12/13/17 History kvqafgazkesg-Lc-cbwp-minerals 18 1 tab PO DAILY tab 12/03/17 12/13/17 History mg-0.4 mg tablet omeprazole 40 mg capsule,delayed 40 mg PO DAILY cap 12/03/17 12/13/17 History release sildenafil 50 mg tablet 40 mg PO TID tab 12/03/17 12/13/17 History theophylline ER 300 mg 300 mg PO BID cap 12/03/17 12/13/17 History capsule,extended release 24 hr Bisoprolol Fumarate [Zebeta 5mg 5 mg PO DAILY 12/13/17 12/13/17 History tablet] risperiDONE [Risperdal 1mg Tablet] 1 mg PO DAILY 12/13/17 12/13/17 History Alendronate Sodium 35 mg PO WEEKLY 12/14/17 12/14/17 History Buspirone HCl [Buspar 5mg tablet] 5 mg PO BID 12/14/17 12/14/17 History Duloxetine HCl [Cymbalta] 60 mg PO DAILY 12/14/17 12/14/17 History Fesoterodine Fumarate [Toviaz] 8 mg PO DAILY 12/14/17 12/14/17 History Potassium Chloride [K-Tab ER 10 20 meq PO BID 12/14/17 12/14/17 History mEq] Allergies Allergy/AdvReac Type Severity Reaction Status Date / Time amoxicillin [From AUGMENTIN] Allergy Unknown Verified 12/13/17 18:46 clavulanic acid Allergy Unknown Verified 12/13/17 18:46 [From AUGMENTIN] Review of Systems - *Cardiovascular Reports shortness of breath, Denies chest pain - *Respiratory Reports shortness of b
--- NOTE | 2017-12-17 14:37 | HMH.CONS ---
*Admission Date: 12/14/17 *Chief complaint: I can't breathe right. *History of present illness: Ms. Liriano is a 72-year-old woman who was diagnosed with emphysema in 1997 and treated intermittently for this over the last 20 years. She has significant cor pulmonale and has been managed for pulmonary hypertension by Dr. Dale Minor at the [facility]. He placed her empirically on sildenafil a few years ago, I believe and she thinks it has benefited her exercise tolerance. Ms. Liriano had a long smoking history but quit more than 25 years ago. Most of the time she has had no significant cough and she manages her household alone. She appears to be quite independent. A few days ago, she suddenly became much more short of breath without fever and with minimal increasing cough. This has not responded to outpatient or inpatient therapy. She has had no chest pain and no one else in contact with her has been ill. [facility] History Medical History: Reports:: Chronic Obstructive Pulmonary Disease (COPD), Hyperlipidemia, Hypertension Denies:: Cancer, Diabetes Mellitus Type 1, Diabetes Mellitus Type 2, Internal Pacemaker, MRSA Other Medical History: Reports: Other (SOA,LUNG DISEASE) Other Surgeries: Yes: Colonoscopy, Tubal Ligation, Other (GALLBLADDER,BLADDER TUCK x2). No: Pacemaker Amputation: No Fractures: No - *Social History Educational Level: Completed High School Smoking Status: Former smoker Alcohol Intake: never Occupational Status: retired Housing: house Comment: Ms. Liriano lives alone and takes care of herself. She is and has 2 children, 5 grandchildren and several great-grandchildren with whom she is in contact. Several family members are around her bedside. - Psychiatric History Expresses thoughts of harming self/others: None Suicide Plan Description: No Plan *Family Hx:: Cancer, Diabetes, Hypertension, Kidney Disease, Stroke Comment: Her father at 80 and had COPD. One of her sisters is at the bedside and she also has COPD. Her mother had tuberculosis when Ms. Liriano was a child. She has never tested positive by tuberculin skin test. Review of Systems - Review of Systems She has had a mild headache recently and suffers from arthralgias of her hands. Apart from the systems mentioned in the present illness, the rest of a 14 point review of systems is negative. - *Neurologic Reports weakness Meds Home Medications Medication Instructions Recorded Confirmed Type atorvastatin 40 mg tablet 40 mg PO HS tab 12/03/17 12/14/17 History betaine 1 gram/1.7 mL oral powder 3 g PO DAILY 12/03/17 12/13/17 History lorazepam 0.5 mg tablet 0.5 mg PO TID tab 12/03/17 12/13/17 History mirtazapine 15 mg tablet 15 mg PO QHS 12/03/17 12/13/17 History rizkryubnbzq-Ob-wrpe-minerals 18 1 tab PO DAILY tab 12/03/17 12/13/17 History mg-0.4 mg tablet omeprazole 40 mg capsule,delayed 40 mg PO DAILY cap 12/03/17 12/13/17 History release sildenafil 50 mg tablet 40 mg PO TID tab 12/03/17 12/13/17 History theophylline ER 300 mg 300 mg PO BID cap 12/03/17 12/13/17 History capsule,extended release 24 hr Bisoprolol Fumarate [Zebeta 5mg 5 mg PO DAILY 12/13/17 12/13/17 History tablet] risperiDONE [Risperdal 1mg Tablet] 1 mg PO DAILY 12/13/17 12/13/17 History Alendronate Sodium 35 mg PO WEEKLY 12/14/17 12/14/17 History Buspirone HCl [Buspar 5mg tablet] 5 mg PO BID 12/14/17 12/14/17 History Duloxetine HCl [Cymbalta] 60 mg PO DAILY 12/14/17 12/14/17 History Fesoterodine Fumarate [Toviaz] 8 mg PO DAILY 12/14/17 12/14/17 History Potassium Chloride [K-Tab ER 10 20 meq PO BID 12/14/17 12/14/17 History mEq] Allergies Allergy/AdvReac Type Severity Reaction Status Date / Time amoxicillin [From AUGMENTIN] Allergy Unknown Verified 12/13/17 18:46 clavulanic acid Allergy Unknown Verified 12/13/17 18:46 [From AUGMENTIN] Exam Vital signs and Labs for Last 24 Hours: Temp Pulse Resp BP Pulse Ox 99.5 F 155 H 1
--- NOTE | 2017-12-17 14:40 | P.CONS_ITS ---
*Admission Date: 12/14/17 *Chief complaint: I can't breathe right. *History of present illness: Ms. Liriano is a 72-year-old woman who was diagnosed with emphysema in 1997 and treated intermittently for this over the last 20 years. She has significant cor pulmonale and has been managed for pulmonary hypertension by Dr. Dale Minor at the [facility]. He placed her empirically on sildenafil a few years ago, I believe and she thinks it has benefited her exercise tolerance. Ms. Liriano had a long smoking history but quit more than 25 years ago. Most of the time she has had no significant cough and she manages her household alone. She appears to be quite independent. A few days ago, she suddenly became much more short of breath without fever and with minimal increasing cough. This has not responded to outpatient or inpatient therapy. She has had no chest pain and no one else in contact with her has been ill. [facility] History Medical History: Reports:: Chronic Obstructive Pulmonary Disease (COPD), Hyperlipidemia, Hypertension Denies:: Cancer, Diabetes Mellitus Type 1, Diabetes Mellitus Type 2, Internal Pacemaker, MRSA Other Medical History: Reports: Other (SOA,LUNG DISEASE) Other Surgeries: Yes: Colonoscopy, Tubal Ligation, Other (GALLBLADDER,BLADDER TUCK x2). No: Pacemaker Amputation: No Fractures: No - *Social History Educational Level: Completed High School Smoking Status: Former smoker Alcohol Intake: never Occupational Status: retired Housing: house Comment: Ms. Liriano lives alone and takes care of herself. She is and has 2 children, 5 grandchildren and several great-grandchildren with whom she is in contact. Several family members are around her bedside. - Psychiatric History Expresses thoughts of harming self/others: None Suicide Plan Description: No Plan *Family Hx:: Cancer, Diabetes, Hypertension, Kidney Disease, Stroke Comment: Her father at 80 and had COPD. One of her sisters is at the bedside and she also has COPD. Her mother had tuberculosis when Ms. Liriano was a child. She has never tested positive by tuberculin skin test. Review of Systems - Review of Systems She has had a mild headache recently and suffers from arthralgias of her hands. Apart from the systems mentioned in the present illness, the rest of a 14 point review of systems is negative. - *Neurologic Reports weakness Meds Home Medications Medication Instructions Recorded Confirmed Type atorvastatin 40 mg tablet 40 mg PO HS tab 12/03/17 12/14/17 History betaine 1 gram/1.7 mL oral powder 3 g PO DAILY 12/03/17 12/13/17 History lorazepam 0.5 mg tablet 0.5 mg PO TID tab 12/03/17 12/13/17 History mirtazapine 15 mg tablet 15 mg PO QHS 12/03/17 12/13/17 History ejosbvgwydml-Vm-rsoi-minerals 18 1 tab PO DAILY tab 12/03/17 12/13/17 History mg-0.4 mg tablet omeprazole 40 mg capsule,delayed 40 mg PO DAILY cap 12/03/17 12/13/17 History release sildenafil 50 mg tablet 40 mg PO TID tab 12/03/17 12/13/17 History theophylline ER 300 mg 300 mg PO BID cap 12/03/17 12/13/17 History capsule,extended release 24 hr Bisoprolol Fumarate [Zebeta 5mg 5 mg PO DAILY 12/13/17 12/13/17 History tablet] risperiDONE [Risperdal 1mg Tablet] 1 mg PO DAILY 12/13/17 12/13/17 History Alendronate Sodium 35 mg PO WEEKLY 12/14/17 12/14/17 History Buspirone HCl [Buspar 5mg tablet] 5 mg PO BID 12/14/17 12/14/17 History Duloxetine HCl [Cymbalta] 60 mg PO DAILY 12/14/17 12/14/17 History Fesoterodine Fumarate [Toviaz] 8 mg PO DAILY
[2017-12-17 15:16] LABS: Free Thyroxine Index 3.7 ug/dL (5.93-13.13); T4 (Thyroxine) 9.8 ug/dl (4.7-13.3); Thyroid Stimulating Hormone 0.22 uIU/ml (0.358-3.740); Triiodothryronine (T3) Uptake 38 % (31-39)
[2017-12-17 15:20] LABS: CKMB Relative Index 9.1 U/L (0-4.0); Creatine Kinase 46 U/L (26-192); Creatine Kinase MB 4.2 mg/ml (0.0-3.6); Troponin I < 0.02 ng/ml (0.00-0.06)
--- NOTE | 2017-12-17 16:50 | PC.NURSE ---
pt has scattered wheezes and is soa when ambulating. pt is a standby assist with ambulation. pt sat in chair this shift. pt has stated some anxiety. no c/o of pain. s1s2 heard and bowel sounds are normal. pt has not had any diarrhea or bowel movement this shift and have been unable to obtain diarrhea panel. will pass this on to next shift. nonskid socks on and call light in reach. will continue to monitor pt condition.
--- NOTE | 2017-12-17 19:14 | PC.NURSE ---
report given to jewell jarvis rn
[2017-12-18] VITALS: BP 132/72; PULSE 90; PULSE 93; RESP 18; TEMP 37.1; O2SAT 98
[2017-12-18 03:57] VITALS: BP 167/88; PULSE 94; RESP 22; TEMP 36.4; O2SAT 93
[2017-12-18 04:00] VITALS: PULSE 90
--- NOTE | 2017-12-18 05:27 | PC.NURSE ---
Patient cardiac strip change notice by this RN. Called ER to speak with Dr. Daniel who is classroom instructional aide for Dr. Huggins and spoke with Qian Frazier RN who states that Dr. Daniel is currently asleep, but she will awaken him and call me back.
--- NOTE | 2017-12-18 05:30 | PC.NURSE ---
Qian Frazier RN called back stating that Dr. Daniel is okay with a stat EKG at this time.
--- NOTE | 2017-12-18 06:03 | PC.NURSE ---
EKG performed by this nurse. Results carried down to ER for Dr. Daniel to evaluate. Dr. Daniel states that there is ST elevation however it is not an acute NM managing supervisor and charge nurse also aware of cardiac changes and Dr. Daniel's findings.
[2017-12-18 06:08] VITALS: O2SAT 96
--- NOTE | 2017-12-18 06:36 | PC.NURSE ---
Stool sample obtained by SRNA and sent to lab for diarrhea panel.
[2017-12-18 07:37] VITALS: BP 156/81; PULSE 87; RESP 18; TEMP 36.6; O2SAT 95
[2017-12-18 07:39] LABS: Adenovirus F 40/41, stool Not Detected (NotDetected); Astrovirus Not Detected (NotDetected); Campylobacter Not Detected (NotDetected); Clostridium Difficile A/B, PCR Not Detected (NotDetected); Cryptosporidium Not Detected (NotDetected); Cyclospora Cayetanesis Not Detected (NotDetected); Entamoeba histolytica Not Detected (NotDetected); Enteroaggregative E coli Not Detected (NotDetected); Enteropathogenic E coli Not Detected (NotDetected); Enterotoxigenic E coli Not Detected (NotDetected); Giardia lamblia Not Detected (NotDetected); Norovirus Not Detected (NotDetected); Plesimonas Shigalloides, PCR Not Detected (NotDetected); Rotavirus A Not Detected (NotDetected); Salmonella, PCR Not Detected (NotDetected); Sapovirus Not Detected (NotDetected); Shiga-like toxin E coli Not Detected (NotDetected); Shigella Enterovasive E coli Not Detected (NotDetected); Vibrio Cholerae Not Detected (NotDetected); Vibrio, PCR Not Detected (NotDetected); Yersinia Entercolitica, PCR Not Detected (NotDetected)
[2017-12-18 08:00] VITALS: PULSE 84
--- NOTE | 2017-12-18 09:25 | HMH.DCSUM ---
General - General Admission date: 12/14/17 Discharge date: 12/18/17 HPI HPI: 72-year-old female with emphysema presented to the emergency department with a 3 day history of increasing dyspnea at rest and even worse with exertion. She is oxygen dependent at home and due to increasing dyspnea at her son had increase her oxygen rate to 3 L/min. When she arrived at the emergency department show O2 sats were decreased but as stay in the emergency department lengthened patient was able to be weaned back to 2 L. She reports URI symptoms of cough and nasal congestion. Cough was productive of a very small amount of green sputum. She denies fevers or chills Above note per admission physician. Hospital Course Hospital Course: Patient was admitted, treated for standard pulmonary emphysema treatment with nebulizers and antibiotics and steroids, this is not improve her situation she became more short of breath. Pulmonary consultation was obtained. Below note per pulmonology. Ms. Liriano is a 72-year-old woman who was diagnosed with emphysema in 1997 and treated intermittently for this over the last 20 years. She has significant cor pulmonale and has been managed for pulmonary hypertension by Dr. Dale Minor at the [facility]. He placed her empirically on sildenafil a few years ago, I believe and she thinks it has benefited her exercise tolerance. Ms. Liriano had a long smoking history but quit more than 25 years ago. Most of the time she has had no significant cough and she manages her household alone. She appears to be quite independent. A few days ago, she suddenly became much more short of breath without fever and with minimal increasing cough. This has not responded to outpatient or inpatient therapy. She has had no chest pain and no one else in contact with her has been ill. History of per pulmonary as above. Recommendations per pulmonary as noted below. Ms. Liriano appears to have very severe chronic obstructive pulmonary disease and I think she does have bronchiectasis as well as emphysema. Because of a strong family history, I recommend alpha-1 antitrypsin phenotype as well as level. Although she seems to have severe disease, I think her exacerbation has been precipitated by a cardiac event such as multifocal atrial tachycardia or intermittent atrial fibrillation. She is on theophylline which is known to be associated with multifocal atrial tachycardia and I recommend stopping this. I have asked for a cardiology consult as well. Hopefully, addressing the cardiac problem will have a beneficial effect on her dyspnea very quickly. She has no evidence of pneumonia but may respond to corticosteroids. The wheezing I hear could also be due to occult CHF related to the rapid heart rate. I had like to follow-up with her as an outpatient. Above recommendations were followed, cardiology recommended bisoprolol. This was started and she felt much better. This morning she is almost back to her baseline. Still little bit short of air but feels comfortable. She is on oxygen. Doing well. And requested to be discharged. Objective Vital signs: Temp Pulse Resp BP Pulse Ox 97.9 F 87 18 156/81 95 12/18/17 07:37 12/18/17 07:37 12/18/17 07:37 12/18/17 07:37 12/18/17 07:37 Narrative: His morning patient is sitting up on the side of the bed, comfortable, slightly jittery. Lungs have good air movement, scattered rhonchi persist, heart rate is much better, abdomen soft and nontender, no edema or clubbing. Results Labs on day of discharge: Labs from last 24 hours 12/17/17 12/17/17 12/17/17 06:30 06:15 06:15 Total Counted 100 Neutrophils % (Manual) 95 H Lymphocytes % (Manual) 4 L Basophils % (Manual) 1.0 Platelet Estimate Normal RBC Morphology Normal Total Creatine Kinase 46 CK-MB (CK-2) 4.2 H D CK-MB (CK-2) Rel Index 9.1 H* Troponin I < 0.02 TSH 0.22 L
--- NOTE | 2017-12-18 09:28 | P.DS_ITS ---
General - General Admission date: 12/14/17 Discharge date: 12/18/17 HPI HPI: 72-year-old female with emphysema presented to the emergency department with a 3 day history of increasing dyspnea at rest and even worse with exertion. She is oxygen dependent at home and due to increasing dyspnea at her son had increase her oxygen rate to 3 L/min. When she arrived at the emergency department show O2 sats were decreased but as stay in the emergency department lengthened patient was able to be weaned back to 2 L. She reports URI symptoms of cough and nasal congestion. Cough was productive of a very small amount of green sputum. She denies fevers or chills Above note per admission physician. Hospital Course Hospital Course: Patient was admitted, treated for standard pulmonary emphysema treatment with nebulizers and antibiotics and steroids, this is not improve her situation she became more short of breath. Pulmonary consultation was obtained. Below note per pulmonology. Ms. Liriano is a 72-year-old woman who was diagnosed with emphysema in 1997 and treated intermittently for this over the last 20 years. She has significant cor pulmonale and has been managed for pulmonary hypertension by Dr. Dale Minor at the [facility]. He placed her empirically on sildenafil a few years ago, I believe and she thinks it has benefited her exercise tolerance. Ms. Liriano had a long smoking history but quit more than 25 years ago. Most of the time she has had no significant cough and she manages her household alone. She appears to be quite independent. A few days ago, she suddenly became much more short of breath without fever and with minimal increasing cough. This has not responded to outpatient or inpatient therapy. She has had no chest pain and no one else in contact with her has been ill. History of per pulmonary as above. Recommendations per pulmonary as noted below. Ms. Liriano appears to have very severe chronic obstructive pulmonary disease and I think she does have bronchiectasis as well as emphysema. Because of a strong family history, I recommend alpha-1 antitrypsin phenotype as well as level. Although she seems to have severe disease, I think her exacerbation has been precipitated by a cardiac event such as multifocal atrial tachycardia or intermittent atrial fibrillation. She is on theophylline which is known to be associated with multifocal atrial tachycardia and I recommend stopping this. I have asked for a cardiology consult as well. Hopefully, addressing the cardiac problem will have a beneficial effect on her dyspnea very quickly. She has no evidence of pneumonia but may respond to corticosteroids. The wheezing I hear could also be due to occult CHF related to the rapid heart rate. I had like to follow-up with her as an outpatient. Above recommendations were followed, cardiology recommended bisoprolol. This was started and she felt much better. This morning she is almost back to her baseline. Still little bit short of air but feels comfortable. She is on oxygen. Doing well. And requested to be discharged. Objective Vital signs: Temp Pulse Resp BP Pulse Ox 97.9 F 87 18 156/81 95 12/18/17 07:37 12/18/17 07:37 12/18/17 07:37 12/18/17 07:37 12/18/17 07:37 Narrative: His morning patient is sitting up on the side of the bed, comfortable, slightly jittery. Lungs have good air movement, scattered rhonchi persist, heart rate is much better, abdomen soft and nontender, no edema or clubbing. Results Labs on day of discharge: Labs
--- NOTE | 2017-12-18 13:06 | HMH.PNCARD ---
Subjective Date: 12/18/17 Time: 10:15 Principal diagnosis: PAT/Sinus Tach Interval history: SOA and HR improved overnight with medication changes. Pt is being discharged home. Echo showed EF of 50% with no wall motion abnormalities. Exam Vital signs and Labs for Last 24 Hours: Temp Pulse Resp BP Pulse Ox 97.9 F 87 18 156/81 95 12/18/17 07:37 12/18/17 07:37 12/18/17 07:37 12/18/17 07:37 12/18/17 07:37 Laboratory Results - last 24 hr 12/14/17 06:55: Stl Aeromonas (PCR) Not detected, Stl C. cayetanensis PCR Not detected, Stool Rotavirus (PCR) Not detected, Stl Adenov F 40/41 PCR Not detected, Stool Astrovirus (PCR) Not detected, Stool Campylobacter PCR Not detected, Stl C.difficile Tox PCR Not detected, Stool Cryptosporidium PCR Not detected, Stl E.coli Shiga Tox PCR Not detected, Stool E coli O157 PCR Not detected, Stl Enterotoxigenic E PCR Not detected, Stool EPEC (PCR) Not detected, Stool EAEC (PCR) Not detected, Stl E. histolytica PCR Not detected, Stool Giardia Lamblia PCR Not detected, Stool Salmonella PCR Not detected, Stool Sapovirus (PCR) Not detected, Stl P. shigelloides PCR Not detected, Stl Shigella/EIEC PCR Not detected, St Y.enterocolitica PCR Not detected, Stool Vibrio (PCR) Not detected, Stl Vibrio cholerae PCR Not detected, Stl Norovirus GI/GII PCR Not detected 12/17/17 06:15: TSH 0.22 L, Free T4 Index 3.7 L, Thyroxine (T4) 9.8, T3 Uptake 38 12/17/17 06:15: Total Creatine Kinase 46, CK-MB (CK-2) 4.2 H D, CK-MB (CK-2) Rel Index 9.1 H*, Troponin I < 0.02 I & O for Last 24 hours: Intake & Output 12/16/17 12/17/17 12/18/17 12/19/17 11:59 11:59 11:59 11:59 Intake Total 1210 / 1210 1190 / 1190 1570 / 1570 Output Total 1650 / 1650 1800 / 1800 1850 / 1850 Balance -440 / -440 -610 / -610 -280 / -280 Weight 137 lb 7 oz 136 lb 7 oz Microbiology Reports for the Last 24 Hours: Microbiology 12/16/17 04:35 Sputum - Expectorated Sputum Gram Stain - Final 12/16/17 04:35 Sputum - Expectorated Sputum Sputum Culture - Final Normal Respiratory Amanda - *Routine Respiratory Exam Present: rhonchi - *Routine Cardiovascular Exam Present: RRR - *Routine Neurological Exam Present: alert, oriented X3, moving all extremities Progress Note: A&P (1) COPD exacerbation Status: Acute Current Visit: Yes (2) Hyperlipidemia Status: Acute Current Visit: Yes (3) Hypertension Status: Acute Current Visit: Yes (4) PAT (paroxysmal atrial tachycardia) Status: Acute Current Visit: Yes (5) Upper respiratory infection Status: Acute Current Visit: Yes Assessment and Plan for All Diagnoses:: Continue bisoprolol 10 mg daily. Increase as needed for HR or BP control Recommend follow up in our office in 1-2 wks.
--- NOTE | 2017-12-18 13:09 | P.PN_ITS ---
Subjective Date: 12/18/17 Time: 10:15 Principal diagnosis: PAT/Sinus Tach Interval history: SOA and HR improved overnight with medication changes. Pt is being discharged home. Echo showed EF of 50% with no wall motion abnormalities. Exam Vital signs and Labs for Last 24 Hours: Temp Pulse Resp BP Pulse Ox 97.9 F 87 18 156/81 95 12/18/17 07:37 12/18/17 07:37 12/18/17 07:37 12/18/17 07:37 12/18/17 07:37 Laboratory Results - last 24 hr 12/14/17 06:55: Stl Aeromonas (PCR) Not detected, Stl C. cayetanensis PCR Not detected, Stool Rotavirus (PCR) Not detected, Stl Adenov F 40/41 PCR Not detected, Stool Astrovirus (PCR) Not detected, Stool Campylobacter PCR Not detected, Stl C.difficile Tox PCR Not detected, Stool Cryptosporidium PCR Not detected, Stl E.coli Shiga Tox PCR Not detected, Stool E coli O157 PCR Not detected, Stl Enterotoxigenic E PCR Not detected, Stool EPEC (PCR) Not detected , Stool EAEC (PCR) Not detected, Stl E. histolytica PCR Not detected, Stool Giardia Lamblia PCR Not detected, Stool Salmonella PCR Not detected, Stool Sapovirus (PCR) Not detected, Stl P. shigelloides PCR Not detected, Stl Shigella /EIEC PCR Not detected, St Y.enterocolitica PCR Not detected, Stool Vibrio (PCR ) Not detected, Stl Vibrio cholerae PCR Not detected, Stl Norovirus GI/GII PCR Not detected 12/17/17 06:15: TSH 0.22 L, Free T4 Index 3.7 L, Thyroxine (T4) 9.8, T3 Uptake 38 12/17/17 06:15: Total Creatine Kinase 46, CK-MB (CK-2) 4.2 H D, CK-MB (CK-2) Rel Index 9.1 H*, Troponin I < 0.02 I & O for Last 24 hours: Intake & Output 12/16/17 12/17/17 12/18/17 12/19/17 11:59 11:59 11:59 11:59 Intake Total 1210 / 1210 1190 / 1190 1570 / 1570 Output Total 1650 / 1650 1800 / 1800 1850 / 1850 Balance -440 / -440 -610 / -610 -280 / -280 Weight 137 lb 7 oz 136 lb 7 oz Microbiology Reports for the Last 24 Hours: Microbiology 12/16/17 04:35 Sputum - Expectorated Sputum Gram Stain - Final 12/16/17 04:35 Sputum - Expectorated Sputum Sputum Culture - Final Normal Respiratory Amanda - *Routine Respiratory Exam Present: rhonchi - *Routine Cardiovascular Exam Present: RRR - *Routine Neurological Exam Present: alert, oriented X3, moving all extremities Progress Note: A&P (1) COPD exacerbation Status: Acute Current Visit: Yes (2) Hyperlipidemia Status: Acute Current Visit: Yes (3) Hypertension Status: Acute Current Visit: Yes (4) PAT (paroxysmal atrial tachycardia) Status: Acute Current Visit: Yes (5) Upper respiratory infection Status: Acute Current Visit: Yes Assessment and Plan for All Diagnoses:: Continue bisoprolol 10 mg daily. Increase as needed for HR or BP control Recommend follow up in our office in 1-2 wks.
== END 2017-12-18 13:10 | disposition home or self-care (01) | DRG 191 ==
LOC: ER 20:31 → 2ND 12-14 07:04
PROVIDERS: Family Medicine; Nurse Practitioner Family; Physician Assistant; Admitting Provider Family Medicine; Emergency Provider Emergency Medicine; Family Provider Internal Medicine Adolescent Medicine; PCP Internal Medicine Adolescent Medicine; Visit Provider Internal Medicine Adolescent Medicine
DX: J44.1 Chronic obstructive pulmonary disease with (acute) exacerbation (principal); I47.1 Supraventricular tachycardia; I27.81 Cor pulmonale (chronic); Z99.81 Dependence on supplemental oxygen; J47.9 Bronchiectasis, uncomplicated; Z87.891 Personal history of nicotine dependence; J06.9 Acute upper respiratory infection, unspecified; I10 Essential (primary) hypertension
CPT/HCPCS: 36415; 71045; 80048; 80053; 82550; 82553; 83605; 84436; 84443; 84479; 84484; 85007; 85025; 87040; 87070; 87205; 87507; 93005; 93306; 94640; 94761; 99284; J0456; J3370

== ENCOUNTER 2018-04-10 19:41 | Inpatient (IN) ==
[2018-04-10 21:10] LABS: Basophils % 0.4 % (0.1-2.0); Eosinophils # 0.2 K/mm3 (0.0-0.4); Eosinophils % 2.4 % (0.1-12.0); Hematocrit 42.4 % (37.0-47.0); Hemoglobin 13.4 g/dL (12.2-16.2); Lymphocytes # 1.3 K/mm3 (0.7-4.5); Lymphocytes % 15.3 K/mm3 (10-50); Mean Corpuscular HGB Conc 31.5 g/dL (31.8-35.4); Mean Corpuscular Hemoglobin 29.6 pg (27.0-31.2); Mean Corpuscular Volume 93.9 fl (81-99); Mean Platelet Volume 7.1 fl (7.4-10.4); Monocytes # 0.6 K/mm3 (0.1-1.0); Monocytes % 6.9 % (1.7-9.3); Neutrophils # 6.2 K/mm3 (1.8-7.8); Neutrophils % 74.9 % (37.0-80.0); Platelet Count 227 K/mm3 (142-424); Red Blood Count 4.51 M/mm3 (4.20-5.40); Red Cell Distribution Width 13.2 % (11.5-17.5); White Blood Count 8.2 K/mm3 (4.8-10.8)
[2018-04-10 21:25] LABS: Anion Gap 11.2 mEq/L (5-15); Blood Urea Nitrogen 15 mg/dL (7-18); Calcium 9.2 mg/dL (8.5-10.1); Carbon Dioxide 33 mmol/L (21.0-32.0); Chloride 106 mmol/L (98-107); Glucose 110 mg/dL (74-106); Potassium 4.2 mmoL/L (3.5-5.1); Sodium 146 mmol/L (136-145)
--- NOTE | 2018-04-10 23:32 | Emergency Department Note ---
ED Disposition Clinical Impression: Acute exacerbation of chronic obstructive airways disease Community acquired pneumonia Qualifiers: Laterality: left Lung location: lower lobe of lung Qualified Code(s): J18.1 - Lobar pneumonia, unspecified organism Disposition: Admitted as Observation Condition on Discharge: Good Referrals: Raffaele Mcmahon MD [Primary Care Provider] - - Critical Care Critical Care Time: No Attestation: On 04/10/18, the high probability of a clinically significant, sudden or life threatening deterioration of the following system(s) required my full and direct attention, intervention and personal management. The time I documented below is in addition to time spent performing reported procedures but includes the following listed in this critical care notation. Medical Decision Making - Medical Records Medical records reviewed: Yes: I reviewed the patient's medical records. - Hua Inquiry Pt receiving controlled substance: No Vital Signs: 04/10/18 20:39 04/10/18 21:10 Temperature 97.6 F Temperature Source Oral Pulse Rate 96 H Pulse Rate [Right Radial] 92 H Respiratory Rate 18 Blood Pressure [Left Arm] 130/74 Blood Pressure Mean [Left Arm] 92 Blood Pressure Source [Left Arm] Automatic Cuff Blood Pressure Position [Left Arm] Sitting 02 Sat by Pulse Oximetry 96 92 L Oxygen Delivery Method Nasal Cannula Nasal Cannula Oxygen Flow Rate (LPM) 2.5 2.5 - Lab Data Lab results reviewed: Yes: I reviewed the patient's lab results. Lab Results 04/10/18 21:02: WBC 8.2, RBC 4.51, Hgb 13.4, Hct 42.4, MCV 93.9, MCH 29.6, MCHC 31.5 L, RDW 13.2, Plt Count 227, MPV 7.1 L, Neut % (Auto) 74.9, Lymph % (Auto) 15.3, Story % (Auto) 6.9, Eos % (Auto) 2.4, Baso % (Auto) 0.4, Neut # (Auto) 6.2 , Lymph # (Auto) 1.3, Story # (Auto) 0.6, Eos # (Auto) 0.2, Baso # (Auto) 0.0 04/10/18 21:02: Sodium 146 H, Potassium 4.2, Chloride 106, Carbon Dioxide 33 H, Anion Gap 11.2, BUN 15, Creatinine 0.96, Estimated Creat Clear 46, Estimated GFR 57 L, Est GFR ( Amer) 69, Glucose 110 H, Calcium 9.2, Troponin I < 0.02 Result diagrams: 04/10/18 21:02 04/10/18 21:02 Orders (Tests/Meds): ED MEDICATIONS Discontinued Medications Generic Name Dose Route Start Last Admin Trade Name Georges PRN Reason Stop Dose Admin Albuterol/Ipratropium 3 ml 04/10/18 20:46 04/10/18 21:07 Duoneb 3ml Neb IH 04/10/18 20:47 3 ml ONCE ONE Administration - Radiology Data #1 Image(s): Chest Image Reviewed: Yes I reviewed the patient's radiology image Preliminary Findings: Abnormal (copd/cap) - ECG Data Tracing #1 I reviewed this ECG and interpreted as documented below: Normal Sinus Rhythm: Yes Ischemic changes: non-specific ST-T wave changes - Physician Consults Physician Consulted: dalila Reason -: Admission Resp/SOB HPI - General Chief Complaint: Shortness of Breath/Dyspnea Stated Complaint: Low O2 Levels Since Yesterday Time Seen by Provider: 04/10/18 23:28 Mode of Arrival: Ambulatory Source of Information: Patient, Relative, Medical Record Limitations: No Limitations Description of Symptoms (Recalled from ER Triage Doc. by RN): SOB x 2 days, has neb at home but cant remember the name, says sats had been low at home, - History of Present Illness progressive sob with no fever or cough and has hx of copd - she denied use of inhalers or nebulizer and no hemoptysis - uses o2 all the time but no tob - no chest pain reported MD Complaint: shortness of breath Onset (ago): day(s) Context: occurred during exertion Severity: moderate Consistency/Duration: intermittent Exacerbating factors: movement Known history of: COPD Associated symptoms: cough Treatment prior to arrival: none - Related Data Home oxygen amount: 2 liters Home Medications Medication Instructions Recorded Confirmed atorvastatin 40 mg tablet 40 mg PO HS tab 12/03/17 04/10/18 betaine 1 gram/1.7 mL oral powder 3 g PO DAILY 12/03/17 04/10/18 lorazepam 0.5 mg tablet 1 mg PO TID tab 12/03/17 04/10/18 mirtazapine 15 mg tablet 15 mg PO QHS 12/03/17 04/10/18 moeszmrrjjyh-Ug-qrcv-minerals 18 1 tab PO DAILY tab 12/03/17 04/10/18 mg-0.4 mg tablet omeprazole 40 mg capsule,delayed 40 mg PO DAILY cap 12/03/17 04/10/18 release sildenafil 50 mg tablet 40 mg PO TID tab 12/03/17 04/10/18 risperiDONE [Risperdal 1mg Tablet] 1 mg PO DAILY 12/13/17 04/10/18 Alendronate Sodium 35 mg PO WEEKLY 12/14/17 04/10/18 Buspirone HCl [Buspar 5mg tablet] 5 mg PO BID 12/14/17 04/10/18 Duloxetine HCl [Cymbalta] 60 mg PO DAILY 12/14/17 04/10/18 Fesoterodine Fumarate [Toviaz] 8 mg PO DAILY 12/14/17 04/10/18 Potassium Chloride [K-Tab ER 10 20 meq PO BID 12/14/17 04/10/18 mEq] Bisoprolol Fumarate 10 mg PO DAILY 04/10/18 04/10/18 Allergies Allergy/AdvReac Type Severity Reaction Status Date / Time amoxicillin [From AUGMENTIN] Allergy Unknown Verified 12/13/17 18:46 clavulanic acid Allergy Unknown Verified 12/13/17 18:46 [From AUGMENTIN] [facility] History I have reviewed the patient's past medical history: Yes Medical History: Reports:: Chronic Obstructive Pulmonary Disease (COPD), Hyperlipidemia, Hypertension Denies:: Cancer, Diabetes Mellitus Type 1, Diabetes Mellitus Type 2, Internal Pacemaker, MRSA Other Medical History: Reports: Other (SOA,LUNG DISEASE) Other Surgeries: Yes: Colonoscopy, Tubal Ligation, Other (GALLBLADDER,BLADDER TUCK x2). No: Pacemaker Amputation: No Fractures: No - Social History Smoking Status: Former smoker Alcohol Intake: never Occupational Status: retired Housing: house Comment: Ms. Liriano lives alone and takes care of herself. She is and has 2 children, 5 grandchildren and several great-grandchildren with whom she is in contact. Several family members are around her bedside. - Psychiatric History Expresses thoughts of harming self/others: None Suicide Plan Description: No Plan Family Hx:: Cancer, Diabetes, Hypertension, Kidney Disease, Stroke Comment: Her father at 80 and had COPD. One of her sisters is at the bedside and she also has COPD. Her mother had tuberculosis when Ms. Liriano was a child. She has never tested positive by tuberculin skin test. ROS Obtained: Yes All systems reviewed & no additional complaints - Constitutional Constitutional: Denies fever(s) - Eyes Eyes: Denies change in vision - ENT Ears, Nose, Mouth, and Throat: Denies sore throat - Cardiovascular Cardiovascular: Denies chest pain, Reports dyspnea - Respiratory Respiratory: No cough - Gastrointestinal Gastrointestingal: Denies: abdominal pain - Genitourinary Female Genitourinary: Denies hematuria - Musculoskeletal Musculoskeletal: Denies joint pain, Denies joint swelling - Integumentary/Breasts Skin/Breast: Denies rash - Neurologic Neurologic: Reports seizure-like activity Physical Exam - General General appearance: in no apparent distress - Head Head exam: normocephalic - Eye Eye exam: Present: PERRL, EOMI. Absent: scleral icterus - ENT ENT exam: Present: mucous membranes moist, mucous membranes dry - Neck Neck exam: Present: trachea midline - Respiratory Respiratory exam: Present: other (bilat rhonchi ). Absent: respiratory distress - Cardiovascular Cardiovascular exam: Present: regular rate, systolic murmur, +S4 - Abdominal Exam Abdominal exam: Present: soft - Extremities Exam Extremities exam: Absent: calf tenderness - Neurological Exam Neurological exam: Present: alert, oriented X3 - Psychiatric Psychiatric exam: Present: normal affect - Skin Skin exam: Absent: rash
[2018-04-11 06:40] LABS: Basophils % 0.1 % (0.1-2.0); Eosinophils % 0.6 % (0.1-12.0); Hemoglobin 12.9 g/dL (12.2-16.2); Lymphocytes # 0.5 K/mm3 (0.7-4.5); Lymphocytes % 6.7 K/mm3 (10-50); Mean Corpuscular HGB Conc 30.8 g/dL (31.8-35.4); Mean Corpuscular Volume 94.1 fl (81-99); Mean Platelet Volume 7.8 fl (7.4-10.4); Monocytes # 0.1 K/mm3 (0.1-1.0); Monocytes % 1.8 % (1.7-9.3); Neutrophils # 6.3 K/mm3 (1.8-7.8); Neutrophils % 90.9 % (37.0-80.0); Platelet Count 190 K/mm3 (142-424); Red Blood Count 4.47 M/mm3 (4.20-5.40)
--- NOTE | 2018-04-11 07:11 | History & Physical Report ---
*Admission Date: 04/11/18 *Chief complaint: Cough/congestion *History of present illness: 72-year-old white female, with COPD, oxygen requiring at home who came to the emergency department with cough, congestion and low-grade/subjective fever. In the emergency department found to have relative hypoxia, coughing and congested , chest x-ray revealed lingular infiltrate along with evidence of COPD exacerbation and she was admitted to hospital for intravenous antibiotics, nebulizer treatments, pulmonary toilet. [facility] History I have reviewed the patient's past medical history: Yes Medical History: Reports:: Chronic Obstructive Pulmonary Disease (COPD), Depression (Significant depression with anxiety features, some memory loss), Hyperlipidemia, Hypertension Denies:: Cancer, Diabetes Mellitus Type 1, Diabetes Mellitus Type 2, Internal Pacemaker, MRSA Other Medical History: Reports: Other (SOA,LUNG DISEASE) Comment: Patient also suffers from pulmonary hypertension, follows with cardiology, currently on sildenafil Laterality Cases: Bilateral: Tonsillectomy Other Surgeries: Yes: Colonoscopy, Tubal Ligation, Other (GALLBLADDER,BLADDER TUCK x2). No: Pacemaker Amputation: No Fractures: No - *Social History Educational Level: Completed High School Smoking Status: Former smoker #Yrs smoked (if former smoker): 22 Alcohol Intake: never Occupational Status: retired Housing: house Household Members: none - Psychiatric History Expresses thoughts of harming self/others: None Suicide Plan Description: No Plan *Family Hx:: Cancer, Diabetes, Hypertension, Kidney Disease, Stroke Review of Systems - Review of Systems Review of systems:: pertinent systems reviewed and negative unless documented below - Constitutional Reports fatigue, Denies anorexia, Denies body ache(s) - Eyes Denies blind spots, Denies blurry vision - ENT Denies abnormal hearing, Denies bleeding gums - *Gastrointestinal Denies abdominal pain, Denies belching, Denies coffee ground vomit, Denies difficulty swallowing - *Musculoskeletal Denies abnormal walking, Denies joint pain - Integumentary/Breasts Denies hair loss - *Neurologic Reports seizure-like activity, Denies abnormal walking, Denies abnormal hearing , Denies behavioral changes - Psychiatric Denies abnormal sleep pattern - Endocrine Denies cold intolerance, Denies excessive sweating - Hematologic/Lymphatic Denies easy bleeding - Allergic/Immunologic Denies GI upset with certain foods Meds Home Medications Medication Instructions Recorded Confirmed Type betaine 1 gram/1.7 mL oral powder 3 g PO DAILY 12/03/17 04/10/18 History lorazepam 0.5 mg tablet 0.5 mg PO TIDP PRN tab 12/03/17 04/11/18 History mirtazapine 15 mg tablet 15 mg PO QHS 12/03/17 04/11/18 History vzypowqufnhj-Lw-wfyn-minerals 18 1 tab PO DAILY tab 12/03/17 04/11/18 History mg-0.4 mg tablet omeprazole 40 mg capsule,delayed 40 mg PO DAILY cap 12/03/17 04/11/18 History release sildenafil 50 mg tablet 40 mg PO TID tab 12/03/17 04/11/18 History risperiDONE [Risperdal 1mg Tablet] 1 mg PO HS 12/13/17 04/11/18 History Alendronate Sodium 35 mg PO WEEKLY 12/14/17 04/11/18 History Buspirone HCl [Buspar 5mg tablet] 5 mg PO BID 12/14/17 04/11/18 History Duloxetine HCl [Cymbalta] 60 mg PO DAILY 12/14/17 04/11/18 History Fesoterodine Fumarate [Toviaz] 8 mg PO DAILY 12/14/17 04/11/18 History Potassium Chloride [K-Tab ER 10 10 meq PO BID 12/14/17 04/11/18 History mEq] ARIPiprazole [Aripiprazole] 2 mg PO DAILY 04/10/18 04/11/18 History Bisoprolol Fumarate 10 mg PO DAILY 04/10/18 04/11/18 History Atorvastatin Calcium [Atorvastatin 40 mg PO HS 04/11/18 04/11/18 History 40mg Tab] Vitamin E Acid Succinate [Vitamin 400 units PO DAILY 04/11/18 04/11/18 History E 400 Unit Tab] Allergies Allergy/AdvReac Type Severity Reaction Status Date / Time amoxicillin [From AUGMENTIN] Allergy Unknown Verified 12/13/17 18:46 clavulanic acid Allergy Unknown Verified 12/13/17 18:46 [From AUGMENTIN] Exam Vital signs and Labs for Last 24 Hours: Temp Pulse Resp BP Pulse Ox 97.1 F L 86 20 131/65 94 L 04/11/18 04:00 04/11/18 06:25 04/11/18 04:00 04/11/18 04:00 04/11/18 06:25 Laboratory Results - last 24 hr 04/10/18 21:02: WBC 8.2, RBC 4.51, Hgb 13.4, Hct 42.4, MCV 93.9, MCH 29.6, MCHC 31.5 L, RDW 13.2, Plt Count 227, MPV 7.1 L, Neut % (Auto) 74.9, Lymph % (Auto) 15.3, [place] % (Auto) 6.9, Eos % (Auto) 2.4, Baso % (Auto) 0.4, Neut # (Auto) 6.2 , Lymph # (Auto) 1.3, [place] # (Auto) 0.6, Eos # (Auto) 0.2, Baso # (Auto) 0.0 04/10/18 21:02: Sodium 146 H, Potassium 4.2, Chloride 106, Carbon Dioxide 33 H, Anion Gap 11.2, BUN 15, Creatinine 0.96, Estimated Creat Clear 46, Estimated GFR 57 L, Est GFR ( Amer) 69, Glucose 110 H, Calcium 9.2, Troponin I < 0.02 04/10/18 23:30: Lactic Acid 0.8 04/11/18 00:30: Troponin I < 0.02 04/11/18 03:00: Troponin I < 0.02 04/11/18 06:02: WBC 7.0, RBC 4.47, Hgb 12.9, Hct 42.0, MCV 94.1, MCH 29.0, MCHC 30.8 L, RDW 13.0, Plt Count 190, MPV 7.8, Neut % (Auto) 90.9 H, Lymph % (Auto) 6.7 L, [place] % (Auto) 1.8, Eos % (Auto) 0.6, Baso % (Auto) 0.1, Neut # (Auto) 6.3 , Lymph # (Auto) 0.5 L, [place] # (Auto) 0.1, Eos # (Auto) 0.0, Baso # (Auto) 0.0 I & O for Last 24 hours: Intake & Output 04/08/18 04/09/18 04/10/18 04/11/18 11:59 11:59 11:59 11:59 Intake Total 437 / 437 Balance 437 / 437 Weight 127 lb 9 oz Narrative: Patient is in bed on oxygen, alert, pleasant. No acute distress. Lungs have crackles in the left middle and lower lung field. Otherwise fairly good air entry. Heart rate regular. Previously noted holosystolic murmur. Abdomen soft and nontender. No edema or clubbing. H&P: Result - Labs Labs: Short CBC 04/10/18 04/11/18 Range/Units 21:02 06:02 WBC 8.2 7.0 (4.8-10.8) K/mm3 Hgb 13.4 12.9 (12.2-16.2) g/dL Hct 42.4 42.0 (37.0-47.0) % Plt Count 227 190 (142-424) K/mm3 BMP 04/10/18 21:02 Sodium 146 H Potassium 4.2 Chloride 106 Carbon Dioxide 33 H BUN 15 Creatinine 0.96 Glucose 110 H Calcium 9.2 Cardiac Enzymes 04/10/18 04/11/18 04/11/18 Range/Units 21:02 00:30 03:00 Troponin I < 0.02 < 0.02 < 0.02 (0.00-0.06) ng/ml Assessment and Plan (1) Pulmonary hypertension Current visit: Yes Status: Acute Category: Medical Code(s): I27.20 - Pulmonary hypertension, unspecified (2) Acute exacerbation of chronic obstructive airways disease Current visit: Yes Status: Acute Category: Medical Code(s): J44.1 - Chronic obstructive pulmonary disease with (acute) exacerbation (3) Community acquired pneumonia Current visit: Yes Status: Acute Qualifiers: Laterality: left Lung location: lower lobe of lung Qualified Code(s): J18.1 - Lobar pneumonia, unspecified organism Category: Medical Code(s): J18.9 - Pneumonia, unspecified organism - Assessment and plan all Dx Assessment and Plan for all problems:: Plan will be to admit to hospital. Agree with current antibiotic therapy. Watch pulmonary/cardiac status carefully. Try to obtain sputum culture.
[2018-04-11 07:37] LABS: Anion Gap 7.1 mEq/L (5-15); Blood Urea Nitrogen 15 mg/dL (7-18); Calcium 9.2 mg/dL (8.5-10.1); Carbon Dioxide 33 mmol/L (21.0-32.0); Chloride 107 mmol/L (98-107); Glucose 147 mg/dL (74-106); Sodium 143 mmol/L (136-145)
[2018-04-11 07:45] LABS: Potassium 4.1 mmoL/L (3.5-5.1)
[2018-04-11 09:30] LABS: Lymphocytes % 6 % (10-50); Monocytes % 2 % (2-9); Neutrophils % 92 % (42-76); Total Cells Counted 100
--- NOTE | 2018-04-11 10:37 | Pharmacy Consult Notes ---
[facility] Pharmacy VTE Monitoring - Patient Demographics Admission date: 04/10/18 Report Date: 04/11/18 Time: 10:37 Allergies/Adverse Reactions: Patient Allergies amoxicillin [From AUGMENTIN] Allergy (Unknown, Verified 12/13/17 18:46) clavulanic acid [From AUGMENTIN] Allergy (Unknown, Verified 12/13/17 18:46) Height: 1.55 m Weight: 57.861 kg Patient Problems: Current Active Problems Community acquired pneumonia (Acute) Acute exacerbation of chronic obstructive airways disease (Acute) Pulmonary hypertension (Acute) - VTE Risk Labs: VTE Related Lab Results Hgb 12.9 g/dL (12.2-16.2) 04/11/18 06:02 Hct 42.0 % (37.0-47.0) 04/11/18 06:02 Plt Count 190 K/mm3 (142-424) 04/11/18 06:02 BUN 15 mg/dL (7-18) 04/11/18 06:02 Creatinine 0.74 mg/dL (0.55-1.02) D 04/11/18 06:02 Estimated Creat Clear 46 mL/min (0-300) 04/11/18 06:02 Was VTE Risk Assessment Performed: Yes VTE Score: 6 VTE Risk Level: Moderate Risk - Prophylaxis VTE Prophylaxis Ordered?: Yes Types of VTE Prophylaxis: TEDS Knee High Location of Applied Device: Bilateral Lower Extremeties - VTE Diagnosis Confirmed Treatment or plan recommended: Continue Current Treatment
--- NOTE | 2018-04-12 09:57 | Progress Note ---
Internal Medicine - PN: Subj *Date: 04/12/18 *Time: 09:55 Interval history: Patient did well overnight except for some owning, patient has a history of disordered thinking and mood disorder and is on chronic atypical antipsychotics at home and seemed to do a little better this morning after her morning Risperdal. She continues to have a mild cough but is not short of air, and has had no fever. Exam Vital signs and Labs for Last 24 Hours: Temp Pulse Resp BP Pulse Ox 97.8 F 99 H 18 153/90 94 L 04/12/18 08:00 04/12/18 08:00 04/12/18 08:00 04/12/18 08:00 04/12/18 08:00 I & O for Last 24 hours: Intake & Output 04/09/18 04/10/18 04/11/18 04/12/18 11:59 11:59 11:59 11:59 Intake Total 677 / 677 1460 / 1460 Output Total 100 / 100 Balance 677 / 677 1360 / 1360 Weight 127 lb 9 oz Microbiology Reports for the Last 24 Hours: Microbiology 04/10/18 23:30 Blood Blood Culture - Preliminary Gram Positive Cocci 04/10/18 23:30 Blood Blood Culture - Preliminary Gram Positive Cocci Narrative: Patient is slightly disoriented, able to be reoriented, she is pleasant and talkative, cranial nerves are intact, walking well around the room. Lungs have rhonchi bilaterally but good air movement, no wheezing. Heart rate regular. No edema noted. Assessment and Plan (1) Pulmonary hypertension Current visit: Yes Status: Acute Category: Medical Code(s): I27.20 - Pulmonary hypertension, unspecified (2) Acute exacerbation of chronic obstructive airways disease Current visit: Yes Status: Acute Category: Medical Code(s): J44.1 - Chronic obstructive pulmonary disease with (acute) exacerbation (3) Community acquired pneumonia Current visit: Yes Status: Acute Qualifiers: Laterality: left Lung location: lower lobe of lung Qualified Code(s): J18.1 - Lobar pneumonia, unspecified organism Category: Medical Code(s): J18.9 - Pneumonia, unspecified organism (4) Bloodstream infection Current visit: Yes Status: Acute Category: Medical Code(s): A41.9 - Sepsis , unspecified organism - Assessment and plan all Dx Assessment and Plan for all problems:: From a pneumonia standpoint patient seems to be improving. No changes in therapy. Pulmonary hypertension symptoms are controlled at this point. Blood cultures with positive testing for gram-positive cocci, possible Streptococcus species per early PCR detection. Plan will be to add vancomycin therapy for broad-spectrum gram-positive coverage. Await formal identification of the organism. Repeat blood cultures tomorrow morning.
--- NOTE | 2018-04-12 10:33 | Pharmacy Consult Notes ---
- Pharmacy Consult Date: 04/12/18 Time: 10:31 Referring provider: DR. GRIJALVA Reason for Consult:: VANCOMYCIN DOSING Allergies and ADEs:: Allergies Allergy/AdvReac Type Severity Reaction Status Date / Time amoxicillin [From AUGMENTIN] Allergy Unknown Verified 12/13/17 18:46 clavulanic acid Allergy Unknown Verified 12/13/17 18:46 [From AUGMENTIN] Home Medications:: Home Medications Medication Instructions Recorded Confirmed Type betaine 1 gram/1.7 mL oral powder 3 g PO DAILY 12/03/17 04/10/18 History lorazepam 0.5 mg tablet 0.5 mg PO TIDP PRN tab 12/03/17 04/11/18 History mirtazapine 15 mg tablet 15 mg PO QHS 12/03/17 04/11/18 History paxjwetkwqpl-Zs-htuy-minerals 18 1 tab PO DAILY tab 12/03/17 04/11/18 History mg-0.4 mg tablet omeprazole 40 mg capsule,delayed 40 mg PO BID cap 12/03/17 04/11/18 History release sildenafil 50 mg tablet 40 mg PO TID tab 12/03/17 04/11/18 History risperiDONE [Risperdal 1mg Tablet] 1 mg PO HS 12/13/17 04/11/18 History Alendronate Sodium 35 mg PO WEEKLY 12/14/17 04/11/18 History Buspirone HCl [Buspar 5mg tablet] 5 mg PO BID 12/14/17 04/11/18 History Duloxetine HCl [Cymbalta] 60 mg PO DAILY 12/14/17 04/11/18 History Fesoterodine Fumarate [Toviaz] 8 mg PO DAILY 12/14/17 04/11/18 History Potassium Chloride [K-Tab ER 10 10 meq PO BID 12/14/17 04/11/18 History mEq] ARIPiprazole [Aripiprazole] 2 mg PO DAILY 04/10/18 04/11/18 History Bisoprolol Fumarate 10 mg PO DAILY 04/10/18 04/11/18 History Atorvastatin Calcium [Atorvastatin 40 mg PO HS 04/11/18 04/11/18 History 40mg Tab] Levomefolate Calcium 15 mg PO DAILY 04/11/18 04/11/18 History [l-Methylfolate Calcium] Vitamin E Acid Succinate [Vitamin 400 units PO DAILY 04/11/18 04/11/18 History E 400 Unit Tab] Height: 1.55 m Weight: 57.861 kg Laboratory Results:: N/A Medical History: Reports:: Chronic Obstructive Pulmonary Disease (COPD), Depression (Significant depression with anxiety features, some memory loss), Hyperlipidemia, Hypertension Denies:: Cancer, Diabetes Mellitus Type 1, Diabetes Mellitus Type 2, Internal Pacemaker, MRSA Assessment and Plan (1) Pulmonary hypertension Current visit: Yes Status: Acute Category: Medical Code(s): I27.20 - Pulmonary hypertension, unspecified (2) Acute exacerbation of chronic obstructive airways disease Current visit: Yes Status: Acute Category: Medical Code(s): J44.1 - Chronic obstructive pulmonary disease with (acute) exacerbation (3) Community acquired pneumonia Current visit: Yes Status: Acute Qualifiers: Laterality: left Lung location: lower lobe of lung Qualified Code(s): J18.1 - Lobar pneumonia, unspecified organism Category: Medical Code(s): J18.9 - Pneumonia, unspecified organism (4) Bloodstream infection Current visit: Yes Status: Acute Category: Medical Code(s): A41.9 - Sepsis , unspecified organism - Assessment and plan all Dx Assessment and Plan for all problems:: BASED ON PATIENT FACTORS, RECOMMEND INITIATING VANCOMYCIN AT 1,000MG IV Q24H FOR BLOODSTREAM INFECTION. PHARMACY WILL CONTINUE TO MONITOR AND WILL ADJUST DOSE APPROPRIATE. -BRIGETTE CARDOSO, TERRYD
[2018-04-13 06:15] LABS: Basophils % 0.6 % (0.1-2.0); Eosinophils # 0.3 K/mm3 (0.0-0.4); Eosinophils % 3.8 % (0.1-12.0); Hematocrit 34.6 % (37.0-47.0); Hemoglobin 10.8 g/dL (12.2-16.2); Lymphocytes # 1.6 K/mm3 (0.7-4.5); Lymphocytes % 23.5 K/mm3 (10-50); Mean Corpuscular HGB Conc 31.1 g/dL (31.8-35.4); Mean Corpuscular Hemoglobin 29.3 pg (27.0-31.2); Mean Corpuscular Volume 94.3 fl (81-99); Mean Platelet Volume 7.4 fl (7.4-10.4); Monocytes # 0.5 K/mm3 (0.1-1.0); Monocytes % 7.5 % (1.7-9.3); Neutrophils # 4.4 K/mm3 (1.8-7.8); Neutrophils % 64.5 % (37.0-80.0); Platelet Count 235 K/mm3 (142-424); Red Blood Count 3.67 M/mm3 (4.20-5.40); Red Cell Distribution Width 13.5 % (11.5-17.5); White Blood Count 6.9 K/mm3 (4.8-10.8)
[2018-04-13 06:32] LABS: Albumin Level 2.9 gm/dL (3.4-5.0); Bilirubin,Total 0.3 mg/dL (0.2-1.0); Globulin 2.8 gm/dl (1.3-3.2); Total Protein,Serum 5.7 gm/dL (6.4-8.2)
[2018-04-13 06:36] LABS: Calcium 8.1 mg/dL (8.5-10.1)
[2018-04-13 08:33] VITALS: BP 185/94
--- NOTE | 2018-04-13 08:39 | Discharge Summary ---
General - General Admission date:: 04/10/18 Discharge date: 04/13/18 HPI HPI: 72-year-old white female, with COPD, oxygen requiring at home who came to the emergency department with cough, congestion and low-grade/subjective fever. In the emergency department found to have relative hypoxia, coughing and congested , chest x-ray revealed lingular infiltrate along with evidence of COPD exacerbation and she was admitted to hospital for intravenous antibiotics, nebulizer treatments, pulmonary toilet. Hospital Course Hospital Course: Patient was admitted and improved very nicely over the first 24 hours with minimal coughing, chest x-ray showed lingular infiltrate as noted, but she responded very nicely to pulmonary toilet and antibiotics. Was noted to have some agitation and disorientation in the hospital consistent with her mood disorder/, treated with twice daily Resporal fairly successfully and good nursing intervention and reorientation. Patient had positive blood cultures for gram-positive cocci and vancomycin was given to cover patient while identification of the organism was made. This morning the organism identification is returned showing Streptococcus mitis in 1 bottle and Streptococcus hominis in the other. Repeat blood cultures done yesterday are still negative. This pattern indicates a contaminant. Patient certainly does not appear to have any other stigmata of bloodstream infection. Plan will be to discharge patient home with antibiotics and prednisone to finish up her COPD exacerbation/community-acquired pneumonia therapy. I will follow her up in my offices on . Of note her blood pressure is elevated today but this seems to be from her anxiety, close follow-up in the office. Continue current medications for this. Objective Vital signs: Temp Pulse Resp BP Pulse Ox 97.6 F 94 H 18 185/94 93 L 04/13/18 07:52 04/13/18 07:52 04/13/18 07:52 04/13/18 07:52 04/13/18 07:52 Narrative: Patient is awake, alert. A little disoriented initially but able to be reoriented. Wearing oxygen. O2 saturation acceptable. Vital signs normal except for slightly high blood pressure. Lungs have good air movement, minimal rhonchi in the left lower lung field but this clears with a vigorous breath and a cough. Heart rate regular. She has no edema or clubbing. Has been able to walk around her hospital room without assistance. Results Labs on day of discharge: Labs from last 24 hours 04/13/18 04/13/18 05:50 05:50 WBC 6.9 RBC 3.67 L Hgb 10.8 L Hct 34.6 L MCV 94.3 MCH 29.3 MCHC 31.1 L RDW 13.5 Plt Count 235 MPV 7.4 Neut % (Auto) 64.5 Lymph % (Auto) 23.5 [place] % (Auto) 7.5 Eos % (Auto) 3.8 Baso % (Auto) 0.6 Neut # (Auto) 4.4 Lymph # (Auto) 1.6 [place] # (Auto) 0.5 Eos # (Auto) 0.3 Baso # (Auto) 0.0 Sodium 148 H Potassium 3.0 L Chloride 112 H Carbon Dioxide 33 H Anion Gap 6.0 BUN 13 Creatinine 0.63 Estimated Creat Clear 46 Estimated GFR 93 Est GFR ( Amer) 112 D Glucose 95 Calcium 8.1 L D Total Bilirubin 0.3 AST 27 ALT 62 Alkaline Phosphatase 77 Total Protein 5.7 L D Albumin 2.9 L Globulin 2.8 Albumin/Globulin Ratio 1.0 L Preliminary micro results at discharge 04/10/18 23:30 Blood Culture - Preliminary Blood Streptococcus mitis/oralis DS: Diagnosis - Discharge Diagnosis (1) Pulmonary hypertension Status: Chronic (2) Acute exacerbation of chronic obstructive airways disease Status: Acute (3) Community acquired pneumonia Status: Acute (4) Bloodstream infection Status: Ruled-out Discharge Plan - Patient Discharge Instructions ACTIVITY: Continue current activity DIET: continue same diet Patient Instructions: Pneumonia-Adult, Chronic Obstructive Pulmonary Disease, Pulmonary Hypertension -- Adult - Follow up Plan Follow up with: Bettina Kruger APRN [Nurse Practitioner] - 04/17/18 12:15 pm Disposition: Home, Self-[facility] Medications: Home Medications Medication Instructions Recorded Confirmed Type betaine 1 gram/1.7 mL oral powder 3 g PO DAILY 12/03/17 04/10/18 History lorazepam 0.5 mg tablet 0.5 mg PO TIDP PRN tab 12/03/17 04/11/18 History mirtazapine 15 mg tablet 15 mg PO QHS 12/03/17 04/11/18 History oozqfahvojay-It-nvyq-minerals 18 1 tab PO DAILY tab 12/03/17 04/11/18 History mg-0.4 mg tablet omeprazole 40 mg capsule,delayed 40 mg PO BID cap 12/03/17 04/11/18 History release sildenafil 50 mg tablet 40 mg PO TID tab 12/03/17 04/11/18 History risperiDONE [Risperdal 1mg Tablet] 1 mg PO HS 12/13/17 04/11/18 History Alendronate Sodium 35 mg PO WEEKLY 12/14/17 04/11/18 History Buspirone HCl [Buspar 5mg tablet] 5 mg PO BID 12/14/17 04/11/18 History Duloxetine HCl [Cymbalta] 60 mg PO DAILY 12/14/17 04/11/18 History Fesoterodine Fumarate [Toviaz] 8 mg PO DAILY 12/14/17 04/11/18 History Potassium Chloride [K-Tab ER 10 10 meq PO BID 12/14/17 04/11/18 History mEq] ARIPiprazole [Aripiprazole] 2 mg PO DAILY 04/10/18 04/11/18 History Bisoprolol Fumarate 10 mg PO DAILY 04/10/18 04/11/18 History Atorvastatin Calcium [Atorvastatin 40 mg PO HS 04/11/18 04/11/18 History 40mg Tab] Levomefolate Calcium 15 mg PO DAILY 04/11/18 04/11/18 History [l-Methylfolate Calcium] Vitamin E Acid Succinate [Vitamin 400 units PO DAILY 04/11/18 04/11/18 History E 400 Unit Tab] Prescriptions/Medication Reconciliation: New Cefdinir [Omnicef 300mg Capsule] 300 mg PO BID #14 cap Azithromycin [Zithromax 250mg tab] 250 mg PO DIRECTED #6 tab Continue lorazepam 0.5 mg tablet 0.5 mg PO TIDP PRN tab PRN Reason: Anxiety gfcmyatotcox-Pa-ipch-minerals 18 mg-0.4 mg tablet 1 tab PO DAILY tab mirtazapine 15 mg tablet 15 mg PO QHS sildenafil 50 mg tablet 40 mg PO TID tab omeprazole 40 mg capsule,delayed release 40 mg PO BID cap risperiDONE [Risperdal 1mg Tablet] 1 mg PO HS Potassium Chloride [K-Tab ER 10 mEq] 10 meq PO BID Duloxetine HCl [Cymbalta] 60 mg PO DAILY Alendronate Sodium 35 mg PO WEEKLY Vitamin E Acid Succinate [Vitamin E 400 Unit Tab] 400 units PO DAILY Atorvastatin Calcium [Atorvastatin 40mg Tab] 40 mg PO HS Buspirone HCl [Buspar 5mg tablet] 5 mg PO BID Fesoterodine Fumarate [Toviaz] 8 mg PO DAILY Bisoprolol Fumarate 10 mg PO DAILY ARIPiprazole [Aripiprazole] 2 mg PO DAILY Levomefolate Calcium [l-Methylfolate Calcium] 15 mg PO DAILY No Action betaine 1 gram/1.7 mL oral powder 3 g PO DAILY
== END 2018-04-13 10:30 | disposition home or self-care (01) ==
LOC: ER 19:41 → 2ND 19:41 → OBSVTOIN 23:37 → 2ND 04-11 00:25
PROVIDERS: ADMIT Family Medicine; ATTEND Internal Medicine Adolescent Medicine
CPT/HCPCS: 36415; 71020; 71046; 80048; 80053; 83605; 84484; 85007; 85025; 87040; 87077; 87186; 93005; 94640; 94761; 96365; 96374; 96375; 99284; J0456; J3370